=== PATIENT | female | born 1970 | race African-American/Black ===

== ENCOUNTER 2017-03-28 09:23 | Inpatient (IN) ==
--- NOTE | 2017-03-28 09:52 | EKG Report ---
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
[2017-03-28] MEDS ORDERED: ALBUTEROL/IPRATROPIUM 3 ML NEB RESP TX STA (09:56)
[2017-03-28 10:06] LABS: Basophils # 0.1 10*3/uL (0.0-0.2); Basophils % 0.5 % (0.0-0.8); Eosinophils # 0.2 10*3/uL (0.0-0.87); Eosinophils % 1.1 % (0.00-10.9); Hemoglobin 12.4 GM/DL (12.0-16.0); Immature Granulocytes % 0.5 %; Immature Granulocytes Absolute 0.07 #; Lymphocytes # 2.3 10*3/uL (1.4-4.0); Lymphocytes % 16.9 % (21.3-54.2); Mean Corpuscular HGB Conc 30.2 GM/DL (32-36); Mean Corpuscular Hemoglobin 24 PG (27-34); Mean Corpuscular Volume 79.8 FL (87-102); Mean Platelet Volume 9.2 FL (9.6-12.0); Monocytes % 7.1 % (1.7-12.7); NRBC # 0.07 10*3/uL; Neutrophils % 73.9 % (38.7-73.9); Platelet Count 490 T/CUMM (130-400); Red Blood Count 5.14 MC/CUMM (3.8-5.5); Red Cell Distribution Width 19.8 % (9.3-17.3); White Blood Count 13.5 T/CUMM (4-12)
[2017-03-28 10:25] LABS: D-Dimer 0.7 MG/L FEU; PT Patient Result 10.6 SECS; Partial Thromboplastin Time 27.5 SECS (0-40)
--- NOTE | 2017-03-28 10:29 | XRay Report ---
XR chest 2V Indication: SOB Comparison: Chest x-ray dated July 25, 2016 Technique: Frontal and lateral views of the chest. Findings: Moderate cardiomegaly. Patchy bilateral perihilar opacities, right greater than left, suspicious for pulmonary edema or pneumonia. Visualized osseous and surrounding soft tissue structures appear grossly unchanged. IMPRESSION: As above. PROCEDURE INTERPRETED AT [facility] DEPARTMENT OF RADIOLOGY Final Report Signed by: Dr Chong Alberto
[2017-03-28 10:40] LABS: Albumin 3.2 G/DL (3.4-5.0); Calcium 8.9 MG/DL (8.5-10.1); Osmolality,Calculated 279.4 MOS/KG (273-304); Potassium 4.7 MMOL/L (3.5-5.1); Total Protein 7.2 G/DL (6.4-8.3); Troponin I Only 0.018 NG/ML (0.00-0.045)
[2017-03-28] MEDS ORDERED: FUROSEMIDE 40 MG/4 ML VIAL IV STA (10:43)
--- NOTE | 2017-03-28 10:45 | Ultrasound Report ---
US gallbladder Indication: Right upper quadrant/epigastric pain. Comparison: None. Technique: Multiple longitudinal and transverse real-time sonographic images of the right upper quadrant of the abdomen are obtained. Findings: The liver measures 19.4 cm and demonstrates increased echogenicity without focal abnormality on submitted images. The gallbladder is normal in size and demonstrates no wall thickening, abnormal intraluminal echoes, or pericholecystic fluid. The sonographic Cruz's sign is negative. The common duct measures 0.29 cm in diameter and there is no evidence of significant intrahepatic ductal dilation. Right kidney measures 9.6 cm. Pancreas obscured. IVC appeared grossly patent. IMPRESSION: Hepatic steatosis/hepatomegaly. No evidence of cholecystitis. PROCEDURE INTERPRETED AT [facility] DEPARTMENT OF RADIOLOGY Final Report Signed by: Dr Chong Alberto
[2017-03-28] MEDS ORDERED: FUROSEMIDE 40 MG/4 ML VIAL ONE (10:48)
[2017-03-28] MEDS ORDERED: LEVOFLOXACIN INJ 500 MG in PREMIX 1 EACH IV STA (10:48)
--- NOTE | 2017-03-28 11:09 | Emergency Department Note ---
Paxton Soriano Gwan, am scribing for, and in the presence of, Alfonso Metzger MD 10:02. Domenica Soriano Phillip K, MD, personally performed the services described in this documentation, ascribed by Jim Matta in my presence, and it is both accurate and complete . Arrival - Arrival Chief Complaint: Shortness of Breath Stated Complaint: hard to breathe. coughing and weak ED Nursing Triage Note: Pt c/o cough, upper abd pain, upper back pain, SOB, and chills x 1.5 months. Mode of Arrival: Ambulatory Limitations: No Limitations Source: Patient, Old Records Reviewed, RN Notes Reviewed Time Seen by Provider: 03/28/17 09:48 - History of Present Illness HPI Narrative: Patient is a 46 y/o obese black female, with a hx of asthma, HTN and NIDDM, who presents to the ED with a c/o upper abd pain and SOB with an onset 1.5 months ago. Patient stated that her SOB is worsened when she exerts herself and that she gets nauseous after she eats a meal. She continued to note that she has had this happen before in 2002 resulting in her being prescribed an Albuterol pump. She noted that she has informed her PCP Dr. Jackson of her sxs and that she was called in a pump, but when she went to pick it up it was not there. She denies the urge to vomit after meals. Her LNMP was 5/18 and it was NML. No other problems/complaints reported in ED. Onset (ago): month(s) Consistency: constant Severity: moderate Date of Last Menstrual Period: March 07 Allergies/Adverse Reactions: Allergies Allergy/AdvReac Type Severity Reaction Status Date / Time No Known Allergies Allergy Verified 03/28/17 09:38 Home Medications: Home Medications Medication Instructions Recorded Confirmed Type Atorvastatin [Lipitor] 10 mg PO DAILY 03/28/17 03/28/17 History Cholecalciferol (Vitamin D3) 2,000 unit PO DAILY 03/28/17 03/28/17 History [Vitamin D3] Furosemide Tab [Lasix Tab] 10 mg PO DAILY 03/28/17 03/28/17 History Lisinopril/Hydrochlorothiazide 1 each PO DAILY 03/28/17 03/28/17 History [Lisinopril-Hctz 10-12.5 mg Tab] Metformin HCl [Metformin HCl ER] 500 mg PO DAILY 03/28/17 03/28/17 History Omeprazole 40 mg PO DAILY 03/28/17 03/28/17 History buPROPion XL [Wellbutrin Xl] 150 mg PO DAILY 03/28/17 03/28/17 History Review of System - Review of System 12 point system: reviewed and no additional remarkable complaints except as stated - Review of System Constitutional: Absent: chills, fever Eyes: Absent: discharge Head/Ears/Nose/Throat: Absent: earache Respiratory: Present: as per HPI, cough Cardiovascular: Absent: chest pain Gastrointestinal: Present: as per HPI, abdominal pain, nausea. Absent: vomiting , diarrhea Genitourinary female: Absent: dysuria Musculoskeletal: Absent: arm pain, back pain, leg pain, neck pain Skin: Absent: rash Neurological: Absent: headache Psychiatric: Absent: anxiety Medical,Surgical,& Family Hx - Medical History Cardio: History of: [place] Endocrine: History of: Diabetes Mellitus (NIDDM) Respiratory: History of: Asthma - Social History Smoking Status: Never smoker Exam Vital Signs: Vital Signs Temperature 98.5 F 03/28/17 09:37 Pulse Rate 118 H 03/28/17 10:16 Respiratory Rate 18 03/28/17 10:16 Blood Pressure 122/47 03/28/17 10:12 O2 Sat by Pulse Oximetry 100 03/28/17 10:16 - General General appearance: alert, in no apparent distress, obese - Head Head exam: Present: atraumatic, normocephalic - Eye Eye exam: Present: normal appearance, PERRL, EOMI - ENT ENT exam: Present: normal oropharynx, mucous membranes moist, TM's normal bilaterally, normal external ear exam - Neck Neck exam: Present: full ROM, trachea midline. Absent: tenderness - Chest Chest inspection: Present: symmetric chest wall rise. Absent: tenderness - Respiratory Respiratory exam: Present: normal lung sounds bilaterally. Absent: respiratory distress - Cardiovascular Cardiovascular exam: Present: normal rhythm, tachycardia - Abdominal Exam Abdominal exam: Present: soft, tenderness (Mid epigastric tenderness to palpation ), normal bowel sounds - Extremities Exam Extremities exam: Present: full ROM. Absent: tenderness - Back Exam Back exam: Present: full ROM. Absent: tenderness - Neurological Exam Neurological exam: Present: alert, oriented X3, CN II-XII intact. Absent: motor sensory deficit - Psychiatric Psychiatric exam: Present: normal affect, normal mood - Skin Skin exam: Present: warm, dry, intact, normal color Course Course Narrative: Patient discussed with the hospitalist. Results - Labs CBC & BMP: 03/28/17 09:53 03/28/17 09:53 Lab Results: I have reviewed the patients labs Labs: Laboratory Tests 03/28/17 09:53 WBC 13.5 H RBC 5.14 Hgb 12.4 Hct 41.0 MCV 79.8 L MCH 24 L MCHC 30.2 L RDW 19.8 H Plt Count 490 H MPV 9.2 L Lymph % (Auto) 16.9 L Neut # (Auto) 10.0 H [place] # (Auto) 1.0 H Laboratory Tests 03/28/17 03/28/17 09:53 09:53 INR 1.0 PT Patient/Control Mix 10.6 D-Dimer, Quantitative 0.7 Circ Anticoag PTT 27.5 Serum , Qual Negative Laboratory Tests 03/28/17 03/28/17 09:53 09:53 Sodium 140 Potassium 4.7 Chloride 100 Carbon Dioxide 36 H BUN 9 Creatinine 1.00 Glucose 132 H Total Bilirubin 0.90 L Alkaline Phosphatase 131 H B-Natriuretic Peptide 106 H Albumin 3.2 L Globulin 4.0 H Albumin/Globulin Ratio 0.8 L - Diagnostic Findings Procedure: Chest x-ray: report reviewed by me (Moderate cardiomegaly. Patchy bilateral perihilar opacities, right greater than left, suspicious for pulmonary hyun or pneumonia. Visualized osseous and surrounding soft tissue structures appear grossly unchanged. ), Ultrasound: report reviewed by me ( Gallbladder: Hepatic steatosis/hepatomegaly. No evidence of cholecystitis. ) Disposition Clinical Impression: Congestive heart failure, Possible pneumonia, Abdominal pain, Hypertension Case discussed with: patient Disposition: Still a Patient Condition: Guarded Additional Instructions: Admit to the hospitalist.
[2017-03-28] MEDS ORDERED: LEVOFLOXACIN INJ 100 ML IV ONE (11:23)
--- NOTE | 2017-03-28 13:46 | Hospitalist History & Physical ---
Assessment and Plan (1) Dyspnea Status: Acute Assessment and plan: Supplemental O2. Breathing treatments scheduled and prn. Current Visit: Yes (2) Pneumonia Status: Acute Assessment and plan: Pneumonia revealed on CXR. Pt. to be admitted. Pt. will be started on IV antibiotics (Zosyn and Azithromycin). Breathing treatments. Supplemental O2. CBC /BMP ordered. Current Visit: Yes (3) Hypertension Status: Acute Assessment and plan: Restart home meds Current Visit: Yes (4) Diabetes Status: Acute Assessment and plan: Accuchecks achs. SSI. A1c in am. Current Visit: Yes (5) Abdominal pain Status: Acute Current Visit: Yes History of Present Illness Chief complaint: shortness of breath History of present illness: Ms. Mendoza is a 46 year old morbidly obese black female with a history of asthma, hypertension, and diabetes presents to the ED today with complaints of shortness of breath that started about a month and half ago. Patient states that she was recently evaluated at [facility] on 03/26 but was discharged from the ED. Patient states that the shortness of breath is worse when she exerts herself. Patient also reports experiencing abdominal pain after she eats a meal. Patient denies any supplemental O2 use at home. Patient reports that her PCP Dr. Olsen is aware of her symptoms and that she was prescribed inhaler for use but that she did not pick it up. Checks x-ray in the ED today revealed 'patchy bilateral perihilar opacities, right greater than left'. WBC noted to be 13.5. Patient will be admitted to the hospitalist service for further evaluation and treatment. Home Medications Medication Instructions Recorded Confirmed Type Atorvastatin [Lipitor] 10 mg PO DAILY 03/28/17 03/28/17 History Cholecalciferol (Vitamin D3) 2,000 unit PO DAILY 03/28/17 03/28/17 History [Vitamin D3] Furosemide Tab [Lasix Tab] 10 mg PO DAILY 03/28/17 03/28/17 History Lisinopril/Hydrochlorothiazide 1 each PO DAILY 03/28/17 03/28/17 History [Lisinopril-Hctz 10-12.5 mg Tab] Metformin HCl [Metformin HCl ER] 500 mg PO DAILY 03/28/17 03/28/17 History Omeprazole 40 mg PO DAILY 03/28/17 03/28/17 History buPROPion XL [Wellbutrin Xl] 150 mg PO DAILY 03/28/17 03/28/17 History Allergies Allergy/AdvReac Type Severity Reaction Status Date / Time No Known Allergies Allergy Verified 03/28/17 09:38 Medical,Surgical,& Family Hx - Medical History Cardio: History of: [place] Endocrine: History of: Diabetes Mellitus (NIDDM) Respiratory: History of: Asthma - Social History Smoking Status: Never smoker - Constitutional Constitutional: Present: chills, fever(s), weakness - Cardiovascular Cardiovascular: Present: dyspnea on exertion, edema. Absent: chest pain at rest - Psychiatric Psychiatric: Absent: confusion - Endocrine Endocrine: Present: heat intolerance Exam - Constitutional Vitals: Period Temp Pulse Resp BP Sys/Zuñiga Pulse Ox Last 24 Hr 98.5 F 111-129 18-45 109-228/47-139 69-100 General appearance: normal weight, no acute distress, morbidly obese - Head Head exam: Present: normal inspection, normocephalic - Eye Eye exam: Present: EOMI. Absent: periorbital swelling Pupils: Present: JOSE. Absent: dilated - Neck Neck exam: Present: normal inspection - Respiratory Respiratory exam: Present: other (coarse, decreased at bases) - Cardiovascular Cardiovascular exam: Present: tachycardia. Absent: systolic murmur - GI/Abdominal GI/Abdominal exam: Present: normal bowel sounds, soft - Extremities Exam Extremities exam: Present: normal capillary refill, full ROM, edema - Neurological Exam Neurological exam: Present: alert, oriented X3 - Psychiatric Psychiatric exam: Present: normal affect, normal mood - Skin Skin exam: Present: normal color, warm, dry Results - Labs CBC & BMP: 03/28/17 09:53 03/28/17 09:53 Lab Results: I have reviewed the past 24 hour labs
[2017-03-28] MEDS ORDERED: GLUCAGON 1 MG VIAL IM PRN ×2 (13:50→15:54)
[2017-03-28] MEDS ORDERED: DEXTROSE 50% 25 GM/50 ML VIAL IV PRN (13:50)
[2017-03-28] MEDS ORDERED: DOCUSATE SODIUM 100 MG CAPSULE PO PRN (14:10)
[2017-03-28] MEDS ORDERED: ALBUTEROL 2.5 MG/3 ML NEB RESP TX PRN (14:10)
[2017-03-28] MEDS ORDERED: FUROSEMIDE 40 MG/4 ML VIAL IV ONE (14:27)
[2017-03-28] MEDS ORDERED: ALBUTEROL/IPRATROPIUM 3 ML NEB RESP TX SCH (15:00)
[2017-03-28] MEDS: cefTRIAXone 1,000 MG in SODIUM CHLORIDE 0.9% 100 ML IV SCH (15:10)
[2017-03-28] MEDS: INSULIN LISPRO 100 UNIT/ML SUBCUT SCH ×2 (16:30→22:19)
[2017-03-28] MEDS ORDERED: ACETAMINOPHEN 325 MG TABLET PO PRN (17:12)
[2017-03-28] MEDS: CARVEDILOL 6.25 MG TABLET PO SCH ×2 (18:15→22:19)
[2017-03-28] MEDS: ACETAMINOPHEN 325 MG TABLET PO PRN (18:15)
[2017-03-28] MEDS: AZITHROMYCIN INJ 500 MG in SODIUM CHLORIDE 0.9% 250 ML IV SCH (18:26)
--- NOTE | 2017-03-28 20:12 | Pulmonology Consult Note ---
History of Present Illness Chief complaint: Asthma. GE RD. Solid dysphasia. History of present illness: Ms. Mendoza is a 46 year old obese black female whom I been asked see in pulmonary consultation for evaluation and treatment. This patient came to the hospital because she was short of breath and because she had some lower substernal chest pain. The chest pain is reproduced with pressure over her lower sternum. She also complains of wheezing shortness of breath and dyspnea on exertion. She says that when she took her lisinopril she felt like her lips and tongue were trying to swell. There may have been peanuts involved but she is suspicious of the lisinopril. She thinks that since she started this medicine her breathing is worse. The patient complains of solid dysphasia over the distal esophagus. She says foods like meat hanging up there and she has to wait for him to go down. She has significant gastroesophageal reflux and this often refluxes up into her throat at night and causes her to call for him to be short of breath. The patient complains of chronic recurrent bilateral lower extremity edema The remainder the review of systems is negative. Allergies. None known. Possibly lisinopril. Home medicines. Lipitor. Vitamin D3. Lasix. Lisinopril. Hydrochlorothiazide. Metformin. Prilosec. Wellbutrin XL 150 mg. Past history. Patient has had asthma since she was a child. She has non- insulin-dependent diabetes mellitus and there is a history of a myocardial infarction but I am not sure what this is. Patient denies any known history of sarcoidosis. High blood pressure. Hyperlipidemia. Social history. Never smoked. Followed by Dr. Dailey Family history. Positive for diabetes. Chest x-ray. 03/28/2017. My interpretation. Mild cardiomegaly. Bilateral hilar adenopathy which is also on a prior film done in July 2016. There is scattered perihilar calcifications bilaterally and there is some mild to moderate interstitial scarring in the medial and posterior basal segments of the right lower lung. Lab. White count is 13,500 with 74 segs 17 lymphs. H&H 12.4 41.0 with decreased indices and elevated red blood cell distribution with. Platelets of 490,000 with a decreased MPV. Electrolytes are normal. Creatinine is 1.0. BUN is 9. Glucoses are mildly elevated. Liver function tests show mild elevation of alkaline [place]. Cardiac enzymes are negative. Natruretic peptide is 102. Total protein is 7.2. Albumin is low at 3.2. Globulins are slightly up at 4.0. Serum test is negative. D-dimer is 0.7. O2 sats on room air is 79%. On FiO2 28% O2 sats are 98%. Physical exam. Vital signs. See below. Afebrile. Psychiatric. Oriented 3 Neurologic. Cranial nerves are intact. Long track motor functions intact. Sensory exam was not done. Gait was not tested. Face is symmetrical. Eyes are normal. Nares normal lips are normal tongue does not appear to be swollen. Neck. Short thick. Symmetrical. No meningismus. Lymphatics. No submandibular cervical supraclavicular or epitrochlear adenopathy. Chest. Laryngeal tracheal and large airway wheeze. Patient is tender over the inferior sternum. Pressure here reproduces her pain. Heart. I hear no gallop Breast deferred Abdomen obese. No organs can be palpated. Bowel sounds are present. and rectal. Deferred Lower extremities +1/4 bilateral pedal and pretibial edema with slight tenderness of the calves. Skin of the face and hand showed no cancerous or infectious lesions. No other areas were examined The remainder the physical exam is negative. Impression. 1. Lifelong history of asthma. Probably exacerbated by gastroesophageal reflux and microaspiration. 2. Solid dysphasia suspect esophageal stricture 3. Gastroesophageal reflux disease with a history strongly suggestive of nocturnal microaspiration 4. Bilateral hilar adenopathy. Possible sarcoidosis. 5. Right lower lung medial basal and basilar segment interstitial scars. Watch for infiltrate. Likely scarring from gastric aspiration 6. Hypoxemia. Etiology undetermined. 7. Chronic bilateral lower extremity edema. Look for DVT 8. High blood pressure 9. Axl-lfldudq-zsbowbcrn diabetes mellitus 10. Hyper-lipidemia 11. Morbid obesity 12. See past history Plan. 1. Discontinue lisinopril. Watch blood pressure 2. Antireflux regimen. Discussed with the patient and her female family member 3. GI consultation for possible E scope with dilatation 4. Angiotensin-converting enzyme 5. Follow-up chest x-ray in the a.m. with attention to right lower lung 6. Sputum for Gram stain culture and sensitivity #7 room air blood gas in the morning 8. Doppler venograms of lower extremity 9. Cold agglutinins 10. Proton pump 11. Thyroid function 12. See orders Home Medications Medication Instructions Recorded Confirmed Type Atorvastatin [Lipitor] 10 mg PO DAILY 03/28/17 03/28/17 History Cholecalciferol (Vitamin D3) 2,000 unit PO DAILY 03/28/17 03/28/17 History [Vitamin D3] Furosemide Tab [Lasix Tab] 10 mg PO DAILY 03/28/17 03/28/17 History Lisinopril/Hydrochlorothiazide 1 each PO DAILY 03/28/17 03/28/17 History [Lisinopril-Hctz 10-12.5 mg Tab] Metformin HCl [Metformin HCl ER] 500 mg PO DAILY 03/28/17 03/28/17 History Omeprazole 40 mg PO DAILY 03/28/17 03/28/17 History buPROPion XL [Wellbutrin Xl] 150 mg PO DAILY 03/28/17 03/28/17 History Allergies Allergy/AdvReac Type Severity Reaction Status Date / Time No Known Allergies Allergy Verified 03/28/17 09:38 Exam (Pulmonay) H&P - Constitutional Vitals: Period Temp Pulse Resp BP Sys/Zuñiga Pulse Ox Last 24 Hr 98.4 F-98.5 F 104-129 18-45 109-228/47-139 69-100 Medical,Surgical,& Family Hx - Medical History Cardio: History of: Hypertension, [place] No history of: CAD Psychological: History of: Depression HEENT: History of: Eye Problem (wears glasses) Endocrine: History of: Diabetes Mellitus (NIDDM), Dyslipidemia Respiratory: History of: Asthma, COPD, Obstructive Sleep Apnea Gastrointestinal: History of: GERD - Surgical History Abdominal Surgeries: Patient denies: Colonoscopy, EGD Reproductive Surgeries: Surgical HX of;: Section - Social History Smoking Status: Never smoker Frequency of Alcohol Use: None Type of Drug Use: None Results - Labs CBC & BMP: 03/28/17 09:53 03/28/17 09:53
[2017-03-28] MEDS: LEVALBUTEROL 1.25 MG/3 ML NEB RESP TX SCH (20:27)
--- NOTE | 2017-03-28 21:29 | Ultrasound Report ---
Bilateral lower extremity venous Doppler with poole scale, Spectral Doppler and color-flow analysis performed and interpreted. Indication: Leg pain and swelling. Shortness of breath. Scanning over both common femoral veins, superficial femoral veins, greater saphenous veins and popliteal veins demonstrates normal compressibility, color flow, and augmentation. Impression: No evidence of DVT seen in either lower extremity. PROCEDURE INTERPRETED AT [facility] DEPARTMENT OF RADIOLOGY Final Report Signed by: Dr. Ting Saba
[2017-03-28 21:44] LABS: Free T4 (Free Thyroxine) 0.97 NG/DL (0.76-1.46); Thyroid Stimulating Hormone 1.03 uIU/ml (0.358-3.74)
[2017-03-28] MEDS: MONTELUKAST 10 MG TABLET PO SCH (22:18)
[2017-03-29] MEDS: LEVALBUTEROL 1.25 MG/3 ML NEB RESP TX SCH ×4 (00:10→19:52)
[2017-03-29 03:35] LABS: ABG Base Excess 6.8 MMOL/L (-2.5-2.5); ABG HCO3 30.2 MMOL/L (20-26); ABG Oxygen Saturation 76.7 % (95-100); ABG PCO2 55.4 MM HG (35-48); ABG PH 7.388 (7.35-7.45); ABG TCO2 30.3 MMOL/L (23-27); Pt O2 Delivery Device Room Air
[2017-03-29 03:51] LABS: ABG PO2 37.5 MM HG (80-95)
[2017-03-29 04:39] LABS: Calcium 8.7 MG/DL (8.5-10.1); Magnesium 2.1 MG/DL (1.8-2.4); Osmolality,Calculated 280.3 MOS/KG (273-304)
[2017-03-29 04:55] LABS: Calcium 8.6 MG/DL (8.5-10.1); Free T4 (Free Thyroxine) 1.1 NG/DL (0.76-1.46); Magnesium 2.1 MG/DL (1.8-2.4); Osmolality,Calculated 282.1 MOS/KG (273-304); Potassium 4.1 MMOL/L (3.5-5.1); Risk Ratio 3.06; Thyroid Stimulating Hormone 0.74 uIU/ml (0.358-3.74)
[2017-03-29 04:57] LABS: Basophils % 0.4 % (0.0-0.8); Eosinophils # 0.2 10*3/uL (0.0-0.87); Eosinophils % 1.8 % (0.00-10.9); Hematocrit 39.3 VOL% (35.7-47.0); Hemoglobin 11.6 GM/DL (12.0-16.0); Immature Granulocytes % 0.5 %; Immature Granulocytes Absolute 0.04 #; Lymphocytes # 1.7 10*3/uL (1.4-4.0); Lymphocytes % 21.1 % (21.3-54.2); Mean Corpuscular HGB Conc 29.5 GM/DL (32-36); Mean Corpuscular Hemoglobin 24 PG (27-34); Mean Corpuscular Volume 80.7 FL (87-102); Mean Platelet Volume 9.5 FL (9.6-12.0); Monocytes % 12.2 % (1.7-12.7); NRBC # 0.05 10*3/uL; Neutrophils # 5.3 10*3/uL (1.4-7.4); Platelet Count 437 T/CUMM (130-400); Red Blood Count 4.87 MC/CUMM (3.8-5.5); Red Cell Distribution Width 19.8 % (9.3-17.3); White Blood Count 8.2 T/CUMM (4-12)
[2017-03-29] MEDS: INSULIN LISPRO 100 UNIT/ML SUBCUT SCH ×4 (08:11→20:51)
[2017-03-29] MEDS: MONTELUKAST 10 MG TABLET PO SCH (08:12)
[2017-03-29] MEDS: FUROSEMIDE 20 MG TABLET PO SCH (08:12)
[2017-03-29] MEDS: CARVEDILOL 6.25 MG TABLET PO SCH ×2 (08:12→20:51)
[2017-03-29] MEDS: buPROPion XL 150 MG TABLET PO SCH (08:12)
[2017-03-29] MEDS: ACETAMINOPHEN 325 MG TABLET PO PRN (08:12)
[2017-03-29] MEDS: ATORVASTATIN 10 MG TABLET PO SCH (08:12)
[2017-03-29] MEDS: PANTOPRAZOLE 40 MG TABLET PO SCH (08:12)
[2017-03-29] MEDS ORDERED: LISINOPRIL/HCTZ 10-12.5 MG TABLET PO SCH (09:00)
--- NOTE | 2017-03-29 09:09 | XRay Report ---
XR chest 2V Indication: Possible sarcoid, right lower lung scar Comparison: Chest x-ray dated April 27, 2017 Technique: Frontal and lateral views of the chest. Findings: Continued cardiomegaly. There is question of bilateral hilar adenopathy. There is nonspecific prominence of interstitial lung markings which can be seen with infectious/pulmonary process such as sarcoid or interstitial pulmonary edema. Consider CT chest for further evaluation of above findings. Visualized osseous and surrounding soft tissue structures appear grossly unchanged. IMPRESSION: As above. PROCEDURE INTERPRETED AT [facility] DEPARTMENT OF RADIOLOGY Final Report Signed by: Dr Chong Alberto
--- NOTE | 2017-03-29 10:08 | Gastrointestinal Consult Note ---
Assessment and Plan (1) Abdominal pain Status: Acute Assessment and plan: 03/29-6 week history of upper abdominal pain with precipitating factors including exertion and ingestion of a meal. No history of gallbladder disease in patient or family. History of reflux and dysphagia to solids. Ultrasound negative other than hepatic steatosis. Plan an addendum to followed by Dr. Thompson. Current Visit: Yes History of Present Illness Chief complaint: Abdominal pain History of present illness: Ms. Mendoza is a 46 year old female who was admitted to the hospital with onset of increased shortness of breath and abdominal pain. Patient states that approximately 6 weeks ago she had a gradual onset of pain in her upper abdomen/ epigastric region. She states that the pain would come alone all of a sudden and would only be relieved by resting. She states that the pain at times seem to be precipitated by eating a meal and at other times from exertion. She denies that the pain could be elicited with touching this area however states that if she would press in the area when the pain started it would help alleviate this. She also has a recent onset cough however she states the pain began prior to the cough. She does report some dysphagia with some solids such as meats and at times has to regurgitate these. She denies any dysphagia to solids or pills. She denies any recent weight loss. She states she has had an increase in belching and bloating lately. She also has reflux and this is controlled with her Prilosec most of the time however does report some nocturnal symptoms including cough.. She states she has no history of peptic ulcer disease in the past. She denies any NSAID use. She denies any melena or hematochezia. She does have some episodes of nausea but denies any vomiting. She denies a family history of gallbladder disease. She states she has never had endoscopy in the past. On admission abdominal ultrasound showed hepatic steatosis with no gallbladder findings. She does have a history of asthma, hypertension and diabetes. She is followed by Dr. Dailey for these things. Chest x-ray is noted to show cardiomegaly, questionable bilateral hilar adenopathy. Home Medications Medication Instructions Recorded Confirmed Type Atorvastatin [Lipitor] 10 mg PO DAILY 03/28/17 03/28/17 History Cholecalciferol (Vitamin D3) 2,000 unit PO DAILY 03/28/17 03/28/17 History [Vitamin D3] Furosemide Tab [Lasix Tab] 10 mg PO DAILY 03/28/17 03/28/17 History Lisinopril/Hydrochlorothiazide 1 each PO DAILY 03/28/17 03/28/17 History [Lisinopril-Hctz 10-12.5 mg Tab] Metformin HCl [Metformin HCl ER] 500 mg PO DAILY 03/28/17 03/28/17 History Omeprazole 40 mg PO DAILY 03/28/17 03/28/17 History buPROPion XL [Wellbutrin Xl] 150 mg PO DAILY 03/28/17 03/28/17 History Allergies Allergy/AdvReac Type Severity Reaction Status Date / Time No Known Allergies Allergy Verified 03/28/17 09:38 Medical,Surgical,& Family Hx - Medical History Cardio: History of: Hypertension, [place] No history of: CAD Psychological: History of: Depression HEENT: History of: Eye Problem (wears glasses) Endocrine: History of: Diabetes Mellitus (NIDDM), Dyslipidemia Respiratory: History of: Asthma, COPD, Obstructive Sleep Apnea Gastrointestinal: History of: GERD - Surgical History Abdominal Surgeries: Patient denies: Colonoscopy, EGD Reproductive Surgeries: Surgical HX of;: Section - Social History Smoking Status: Never smoker Frequency of Alcohol Use: None Type of Drug Use: None 12 point system: reviewed and no additional remarkable complaints except as stated - Constitutional Constitutional: Present: as per HPI - EENT Eyes: Present: as per HPI Ears: Present: as per HPI Nose, mouth and throat: Present: as per HPI, dysphagia - Cardiovascular Cardiovascular: Present: as per HPI, dyspnea - Respiratory Respiratory: Present: as per HPI, cough, dyspnea - Gastrointestinal Gastrointestinal: Present: as per HPI, abdominal pain, dysphagia, heartburn, nausea - Genitourinary Genitourinary: Present: as per HPI - Musculoskeletal Musculoskeletal: Present: as per HPI - Neurological Neurological: Present: as per HPI - Psychiatric Psychiatric: Present: as per HPI - Endocrine Endocrine: Present: as per HPI - Hematologic/Lymphatic Hematologic/Lymphatic: Present: as per HPI Exam - Constitutional Vitals: Period Temp Pulse Resp BP Sys/Zuñiga Pulse Ox Last 24 Hr 96.6 F-98.6 F 101-124 16-45 91-152/47-121 73-100 General appearance: no acute distress, morbidly obese - Head Head exam: Present: normal inspection, normocephalic - Eye Eye exam: Present: other (Lids and conjunctive are unremarkable). Absent: scleral icterus - ENT ENT exam: Present: normal exam, normal oropharynx - Neck Neck exam: Present: normal inspection - Respiratory Respiratory exam: Present: clear to auscultation bilaterally. Absent: rales, rhonchi, wheezes - Cardiovascular Cardiovascular exam: Present: regular rate and rhythm. Absent: diastolic murmur , JVD, systolic murmur - GI/Abdominal GI/Abdominal exam: Present: normal bowel sounds, soft. Absent: ascites, distended, mass, organomegaly, tenderness - Extremities Exam Extremities exam: Present: normal inspection, full ROM - Back Exam Back exam: Present: normal inspection - Neurological Exam Neurological exam: Present: alert, oriented X3 - Psychiatric Psychiatric exam: Present: normal affect, normal mood - Skin Skin exam: Present: normal color, warm, dry Results - Labs CBC & BMP: 03/29/17 03:43 03/29/17 03:43 Lab Results: I have reviewed the past 24 hour labs
--- NOTE | 2017-03-29 10:15 | Physician Query Form ---
CLICK EDIT DOCUMENT TO SELECT QUERY ANSWER --> OK --> SIGN Lucero Flores RN Clinical V Belt Inspector W) [phone] (f) [phone] [email or web address]: Make your selection(s) from the choices in EACH section by typing an "x" and enter comments in the comment section. Please use your independent medical judgment in providing your response. This request does not imply that any particular answer is desired or expected. CLINICAL INDICATORS: (Providers should not edit this section) Based on documentation of "presents with shortness of breath. She was noted to be hypoxic in the ER". PO2=37.5. ABG O2 sat=76.7. Pt. treated with O2 at 3L NC. If possible, please further clarify the type and acuity of respiratory diagnosis : ACUITY: ( ) Acute ( ) Chronic (X ) Acute on Chronic TYPE: ( ) Respiratory failure with hypoxia ( ) Respiratory failure with hypercapnia (X ) Respiratory Insufficiency ( ) ARDS (Adult/Acute Respiratory Distress Syndrome) ( ) Other, please specify: ( ) Clinically unable to determine Recognized criteria for respiratory failure PH <7.35 or >7.45 PO2 <60 PCO2 >50 RR >24 O2 Sat <90% on RA or <95% on O2 Use of accessory muscles Unable to speak in full sentences Intubation is not required COMMENTS: PLEASE ALSO DOCUMENT RESPONSE IN PROGRESS NOTES AND/OR DISCHARGE SUMMARY Use of terms such as suspected, likely, or probable (associated with a specific diagnosis that is being evaluated, monitored, or treated as if it exists) are acceptable and can be restated in the discharge summary if not ruled out. MTDD
--- NOTE | 2017-03-29 10:20 | Physician Query Form ---
CLICK EDIT DOCUMENT TO SELECT QUERY ANSWER --> OK --> SIGN Lucero Flores RN Clinical Leather Colorer W) [phone] (f) [phone] [email or web address] PROVIDERS: Make your selection(s) from the choices in EACH section by typing an "x" and enter comments in the comment section. Please use your independent medical judgment in providing your response. This request does not imply that any particular answer is desired or expected. CLINICAL INDICATORS: (Providers should not edit this section) Pt. admitted with pneumonia. Based on documentation of "dysphagia, gastric aspiration, and microaspiration". Pt. treated with IV Azithromycin and Rocephin , Community Acquired and Healthcare Acquired are both unspecified terms and require further specificity. Based on the above, could you please clarify further specificity regarding the type of pneumonia you are treating (even if specific organism may not be known) ? ( ) Aspiration pneumonia ( ) Gram negative pneumonia ( ) Gram positive pneumonia (x) Bacterial pneumonia due to, please specify organism (if known): Organism unknown ( ) Viral pneumonia ( ) Pneumonia due to, please specify: ( ) Clinically unable to determine ( ) Other, please specify: COMMENTS: PLEASE ALSO DOCUMENT RESPONSE IN PROGRESS NOTES AND/OR DISCHARGE SUMMARY Use of terms such as suspected, likely, or probable (associated with a specific diagnosis that is being evaluated, monitored, or treated as if it exists) are acceptable and can be restated in the discharge summary if not ruled out. MTDD
--- NOTE | 2017-03-29 11:04 | Pulmonology Progress Note ---
Pulmonary - PN: Subj Interval history: This is a 46-year-old black female whom I saw in pulmonary consultation on 2016. My impressions were. 1. Lifelong history of asthma. Probably exacerbated by gastroesophageal reflux and microaspiration. 2. Solid dysphasia suspect esophageal stricture 3. Gastroesophageal reflux disease with a history strongly suggestive of nocturnal microaspiration 4. Bilateral hilar adenopathy. Possible sarcoidosis. 5. Right lower lung medial basal and basilar segment interstitial scars. Watch for infiltrate. Likely scarring from gastric aspiration 6. Hypoxemia. Etiology undetermined. 7. Chronic bilateral lower extremity edema. Look for DVT 8. High blood pressure 9. Gii-eawgvzj-duoepmfgp diabetes mellitus 10. Hyper-lipidemia 11. Morbid obesity 12. See past history 03/29/2017. Today the patient's breathing is a little better. She has asthma. She has some mainly tracheal and large airway wheezing. She is in aspirator. She also has solid dysphasia and probable esophageal stricture. She is getting a GI evaluation today. Patient has bilateral hilar adenopathy. She is not aware of any history of sarcoidosis. Angiotensin-converting enzyme has been ordered but is pending. I have stopped the patient's lisinopril. She has non- insulin-dependent diabetes mellitus, hyperlipidemia and high blood pressure. There is also a history of obstructive sleep apnea. We should continue her inhalation therapy. She has been started on Singulair. She is also on antibiotics. Today's x-ray shows either scarring or infiltrate in the medial basilar and posterior basal segments of the right lower lung. Cultures are pending. Doppler venograms of the lower extremities Physical exam. Vital signs. See below. Psychiatric. Oriented 3 Neurologic. Cranial nerves are intact. Long track motor functions intact. Face. Symmetrical. Lips and tongue are probably normal. Neck. Symmetrical. No meningismus. Lymphatics. No submandibular cervical supraclavicular or epitrochlear adenopathy. Chest. Tracheal and large airway wheeze with prolonged expiration no chest wall tenderness except over the lower sternal area Heart. No gallop Abdomen. Massively obese. Positive bowel sounds Lower extremities. Trace of edema bilaterally. The remainder of the physical exam is negative Plan. 1. Discontinue lisinopril. Watch blood pressure 2. Antireflux regimen. Discussed with the patient and her female family member 3. GI consultation for possible E scope with dilatation 4. Angiotensin-converting enzyme 5. Follow-up chest x-ray in the a.m. with attention to right lower lung 6. Sputum for Gram stain culture and sensitivity #7 room air blood gas in the morning 8. Doppler venograms of lower extremity 9. Cold agglutinins 10. Proton pump 11. Thyroid function 12. See orders Exam (Progress Note) - Constitutional Vitals: Period Temp Pulse Resp BP Sys/Zuñiga Pulse Ox Last 24 Hr 96.6 F-98.6 F 101-124 16-45 91-152/55-121 73-99 Results - Labs CBC & BMP: 03/29/17 03:43 03/29/17 03:43
[2017-03-29 11:32] LABS: Bilirubin,Total 0.9 MG/DL (0.2-1.0)
--- NOTE | 2017-03-29 12:28 | Hospitalist Progress Note ---
Assessment and Plan - Time spent with patient Time spent with patient: Greater than 30 minutes (1) Dyspnea Status: Acute Assessment and plan: Multifactorial. Associated with hypoxemia. Improving however radiologist recommends a CT to assess hilar prominence. Pulmonary is involved and has ordered angiotensin-converting enzyme serum values to assess for sarcoidosis. Apparently the patient has a history of asthma. Continue breathing treatments, Singulair. Current Visit: Yes (2) Tachycardia Status: Acute Assessment and plan: She was transferred to telemetry and placed in adult drip yesterday and the nurse informed me she went into a flutter with RVR and 150 bpm. Review of the records cannot seem to find any evidence of a flutter or A. fib. Cardiology has been consulted and an echocardiogram performed. Current Visit: Yes (3) Pneumonia Status: Acute Assessment and plan: Continue antibiotics no fever. Current Visit: Yes (4) Dysphagia Status: Acute Assessment and plan: GI consulted. Current Visit: Yes (5) Hypertension Status: Acute Assessment and plan: Continue medications. Current Visit: Yes (6) Diabetes Status: Acute Assessment and plan: Continue current management. Current Visit: Yes Hospitalist: Subjective Interval history: No complaints this morning, she states she feels better. Exam - Constitutional Vitals: Period Temp Pulse Resp BP Sys/Zuñiga Pulse Ox Last 24 Hr 96.6 F-98.6 F 96-124 16-45 91-152/55-121 73-99 General appearance: no acute distress, morbidly obese - Head Head exam: Present: normocephalic, atraumatic - Eye Eye exam: Present: EOMI Pupils: Present: JOSE - ENT ENT exam: Present: normal exam - Neck Neck exam: Present: normal inspection - Respiratory Respiratory exam: Present: clear to auscultation bilaterally. Absent: rhonchi, wheezes - Cardiovascular Cardiovascular exam: Present: regular rate and rhythm. Absent: gallop, rubs, systolic murmur - GI/Abdominal GI/Abdominal exam: Present: normal bowel sounds, soft. Absent: distended, firm , guarding, tenderness, rebound - Extremities Exam Extremities exam: Present: normal inspection. Absent: calf tenderness, edema Results - Labs CBC & BMP: 03/29/17 03:43 03/29/17 03:43 Lab Results: I have reviewed the past 24 hour labs
[2017-03-29] MEDS: AZITHROMYCIN INJ 500 MG in SODIUM CHLORIDE 0.9% 250 ML IV SCH (14:24)
--- NOTE | 2017-03-29 14:54 | Cardiology Consult Note ---
Assessment and Plan - Time spent with patient Time spent with patient: Greater than 30 minutes (1) Sinus tachycardia Status: Resolved Assessment and plan: SEE PLAN OF CARE LISTED BELOW. Current Visit: Yes (2) Pulmonary hypertension Status: Chronic Assessment and plan: SEE PLAN OF CARE LISTED BELOW. Current Visit: Yes (3) Dyspnea on exertion Status: Acute Assessment and plan: SEE PLAN OF CARE LISTED BELOW. Current Visit: Yes (4) Abdominal pain Status: Acute Assessment and plan: SEE PLAN OF CARE LISTED BELOW. Current Visit: Yes (5) Diabetes Status: Chronic Assessment and plan: SEE PLAN OF CARE LISTED BELOW. Current Visit: Yes Qualifiers: Diabetes mellitus type: type 2 (6) Pneumonia Status: Acute Assessment and plan: SEE PLAN OF CARE LISTED BELOW. Current Visit: Yes (7) Asthma Status: Chronic Assessment and plan: SEE PLAN OF CARE LISTED BELOW. Current Visit: Yes (8) Sleep apnea Status: Chronic Assessment and plan: SEE PLAN OF CARE LISTED BELOW. Current Visit: Yes (9) GERD (gastroesophageal reflux disease) Status: Chronic Assessment and plan: SEE PLAN OF CARE LISTED BELOW. Current Visit: Yes (10) Obesity Status: Chronic Assessment and plan: SEE PLAN OF CARE LISTED BELOW. Current Visit: Yes History of Present Illness - Data of Consult Patient: known to practice within the last 3 years Consult date: 03/29/17 Requesting Physician: Amalia Lugo Primary care physician: Shani Jackson - Consult Narrative Reason for consult: Sinus tachycardia History of present illness: Academic Affairs Specialist: Dr. Bullock PCP: Dr. Jackson Ms. Mendoza is a 46 year old female without known history of coronary artery disease, followed by Dr. Bullock in the remote past. Patient presented to emergency department with complaints of shortness of breath and dyspnea on exertion 1 month. Patient has cardiac risk factors significant for diabetes, hypertension, dyslipidemia, obesity, sedentary lifestyle and former smoker. She has a past medical history of GERD, sleep apnea (wears CPAP nightly) and asthma. Patient saw Dr. Bullock September 2016 for surgical clearance for gastric sleeve surgery. However, she did not undergo the surgery. At that time , she underwent echocardiogram which revealed ejection fraction of 55%. Diastolic function was not determined. Mild TR. CPAP was mildly elevated at 58. Patient was in her usual state of health until approximately 1 month ago when she began experiencing dyspnea on exertion. Patient presented to the emergency department March 28 for further evaluation. She also has complaints of abdominal pain after meals, GI is evaluating. Gallbladder ultrasound was performed which revealed hepatic steatosis and hepatomegaly. No evidence of cholecystitis. Chest x-ray was suggestive for pneumonia, treating with IV antibiotics. X-ray also revealed bilateral hilar adenopathy. Angiotensin-converting enzyme is currently pending in order to assess for sarcoidosis. Dr. Dolan is following. Last night, cardiology was consulted for what was felt to be atrial flutter with rapid ventricular response. However, after reviewing patient's electronic medical record there is no evidence of atrial fibrillation or flutter noted. It appears that patient was in sinus tachycardia with heart rates ranging from 100-120. Patient has been seen on the telemetry unit. Currently patient is in a normal sinus rhythm with heart rates in the 90s. She reports that she did experience mild palpitations last night. However, this is now resolved. She reports that she has never experienced any heart racing/palpitations previous to this hospital admission. She denies chest pain, heaviness and tightness. She also denies any past history of cardiac dysrhythmia. She still has complaints of dyspnea on exertion. This is currently being worked up. Angiotensin converting enzyme is pending in order to assess patient for possible sarcoidosis. Echocardiogram is also pending. At this point, we will continue current plan of care with beta-nette and monitor patient closely on telemetry. We will make further adjustments as needed throughout her hospital stay. ASSESSMENT/PLAN : 1. SINUS TACHYCARDIA - Resolved. It appears that patient was in sinus tachycardia upon admission to [facility]. Heart rates were as high as 125. This has now resolved and at this point, we will monitor this on telemetry. Continue beta-nette and we will further adjust medications as needed throughout her hospital stay. 2. DYSPNEA ON EXERTION - This is most likely multifactorial. It is associated with hypoxemia, etiology unknown. Patient did have bilateral hilar adenopathy per chest x-ray. Radiologist recommends CT in order to further assess hilar adenopathy. Will defer this to Dr. Dolan as he is following. Dr. Dolan is working patient up for possible sarcoidosis. Angiotensin-converting enzyme is pending. Patient also has long-standing history of asthma. At this point, recommend continuing current plan of care with breathing treatments and Singulair. Defer further management to Dr. Dolan. Patient had echocardiogram September 2016 at the [facility] clinic which revealed ejection fraction of 55%, unable to determine diastolic function. Hospital medicine has reordered echocardiogram , results pending. 3. PNEUMONIA - Management per Dr. Dolan. Continue antibiotics. 4. ABDOMINAL PAIN - GI is working this up. Gallbladder ultrasound revealed hepatic steatosis and hepatomegaly. No evidence of cholecystitis. Defer to GI. 5. DIABETES - Defer management to attending. 6. ASTHMA - Management per Dr. Damico. 7. SLEEP APNEA - CPAP nightly. 8. GERD - Continue current plan of care with PPI. 10. BILATERAL HILAR ADENOPATHY - Possible sarcoidosis. Angiotensin-converting enzyme pending. 11. OBESITY - Encouraged weight loss. 12. PULMONARY HYPERTENSION - Echocardiogram September 2016 revealed a pulmonary artery pressure of 58. Repeat echocardiogram has been ordered in order to reevaluate this. At this point, we will continue current plan of care. Further plan and addendum to follow per Dr. Vogt. CC: Amalia Lugo MD - Home Medications and Allergies Home Medications: Home Medications Medication Instructions Recorded Confirmed Type Atorvastatin [Lipitor] 10 mg PO DAILY 03/28/17 03/28/17 History Cholecalciferol (Vitamin D3) 2,000 unit PO DAILY 03/28/17 03/28/17 History [Vitamin D3] Furosemide Tab [Lasix Tab] 10 mg PO DAILY 03/28/17 03/28/17 History Lisinopril/Hydrochlorothiazide 1 each PO DAILY 03/28/17 03/28/17 History [Lisinopril-Hctz 10-12.5 mg Tab] Metformin HCl [Metformin HCl ER] 500 mg PO DAILY 03/28/17 03/28/17 History Omeprazole 40 mg PO DAILY 03/28/17 03/28/17 History buPROPion XL [Wellbutrin Xl] 150 mg PO DAILY 03/28/17 03/28/17 History Allergies/Adverse Reactions: Allergies Allergy/AdvReac Type Severity Reaction Status Date / Time No Known Allergies Allergy Verified 03/28/17 09:38 - Constitutional Constitutional: Present: fatigue, malaise. Absent: chills, fever(s), frequent falls - Cardiovascular Cardiovascular: Present: dyspnea, dyspnea on exertion, palpitations. Absent: chest pain at rest, chest pain with activity, claudication, diaphoresis, edema, radiating jaw, neck or arm pain, lightheadedness, orthopnea, PND - Respiratory Respiratory: Present: cough, dyspnea, dyspnea on exertion, wheezing, snoring, change in phlegm color. Absent: hemoptysis, pain on inspiration - Gastrointestinal Gastrointestinal: Present: abdominal pain, dyspepsia. Absent: coffee ground emesis, hematemesis, hematochezia, loose stools - Neurological Neurological: Absent: abnormal gait, abnormal speech, behavioral changes, dizziness, frequent falls, paresthesias, syncope - Hematologic/Lymphatic Hematologic/Lymphatic: Absent: easy bleeding, easy bruising, lymphadenopathy Medical,Surgical,& Family Hx - Medical History Cardio: History of: Hypertension Psychological: History of: Depression HEENT: History of: Eye Problem (wears glasses) Endocrine: History of: Diabetes Mellitus (NIDDM), Dyslipidemia Respiratory: History of: Asthma, Obstructive Sleep Apnea Gastrointestinal: History of: GERD - Surgical History Abdominal Surgeries: Patient denies: Colonoscopy, EGD Reproductive Surgeries: Surgical HX of;: Section - Family History Family History: Reports;: Family Heart Disease - Social History Smoking Status: Former smoker Frequency of Alcohol Use: None Type of Drug Use: None Marital Status: Lives With:: Spouse Functional capacity: independent ambulation Physical Examination Vital Signs Temp Pulse Resp BP Pulse Ox 98.5 F 129 H 22 228/139 69 L 03/28/17 09:37 03/28/17 09:37 03/28/17 09:37 03/28/17 09:37 03/28/17 09:37 Other: General: Appears well with no apparent distress. Pleasant and cooperative. Appears comfortable. Obese. HEENT: PERRL, normocephalic, atraumatic. Mucous membranes moist. No jaundice noted. Conjunctiva moist and clear, sclerae anicteric Neck: No JVD/HJR, no thyromegaly or lymphadenopathy noted. No carotid bruit appreciated Cardiac: Regular rate and rhythm. No murmur rub or gallop. Lungs: Clear to auscultation without accessory muscle use to assist the respiratory pattern. No wheezing auscultated. Abdomen: Soft, bowel sounds normoactive. Obese. Extremities: No clubbing, cyanosis noted. No edema noted. Upper extremity pulses 2+. Lower extremity pulses 2+. Capillary refill less than 3 seconds. Skin: No unusual lesions or rashes. No skin breakdown appreciated. Neuro: Awake, alert and oriented 3. Moves all extremities well without hemiparesis or paralysis. No essential tremor is appreciated. Result/EKG - Labs CBC & BMP: 03/29/17 03:43 03/29/17 03:43 Lab Results: I have reviewed the past 24 hour labs Labs: Laboratory Results - last 24 hr 03/28/17 03/28/17 03/28/17 09:53 15:44 16:57 WBC RBC Hgb Hct MCV MCH MCHC RDW Plt Count MPV Neut % (Auto) Lymph % (Auto) Nicol[place] % (Auto) Eos % (Auto) Baso % (Auto) Neut # (Auto) Lymph # (Auto) Nicollet # (Auto) Eos # (Auto) Baso # (Auto) Immature Gran % Nucleated RBC % Immature Gran # Nucleated RBCs # ABG pH ABG pCO2 ABG pO2 ABG HCO3 ABG Total CO2 ABG O2 Saturation ABG Base Excess FiO2 Sodium Potassium Chloride Carbon Dioxide Anion Gap BUN Creatinine GFR Calculation BUN/Creatinine Ratio Glucose POC Glucose 160 H Hemoglobin A1c Calculated Osmolality Calcium Magnesium Total Bilirubin 0.90 Troponin I < 0.015 Triglycerides Cholesterol LDL Cholesterol VLDL Cholesterol HDL Cholesterol Heart Disease Risk Ratio Free T4 TSH 3rd Generation Cold Agglutinin Screen 03/28/17 03/28/17 03/28/17 20:32 20:32 20:42 WBC RBC Hgb Hct MCV MCH MCHC RDW Plt Count MPV Neut % (Auto) Lymph % (Auto) Nicollet % (Auto) Eos % (Auto) Baso % (Auto) Neut # (Auto) Lymph # (Auto) Nicollet # (Auto) Eos # (Auto) Baso # (Auto) Immature Gran % Nucleated RBC % Immature Gran # Nucleated RBCs # ABG pH ABG pCO2 ABG pO2 ABG HCO3 ABG Total CO2 ABG O2 Saturation ABG Base Excess FiO2 Sodium Potassium Chloride Carbon Dioxide Anion Gap BUN Creatinine GFR Calculation BUN/Creatinine Ratio Glucose POC Glucose 122 H Hemoglobin A1c Calculated Osmolality Calcium Magnesium Total Bilirubin Troponin I Triglycerides Cholesterol LDL Cholesterol VLDL Cholesterol HDL Cholesterol Heart Disease Risk Ratio Free T4 0.97 TSH 3rd Generation 1.030 Cold Agglutinin Screen Negative 03/29/17 03/29/17 03/29/17 03:30 03:43 03:43 WBC 8.2 D RBC 4.87 Hgb 11.6 L Hct 39.3 MCV 80.7 L MCH 24 L MCHC 29.5 L RDW 19.8 H Plt Count 437 H MPV 9.5 L Neut % (Auto) 64.0 Lymph % (Auto) 21.1 L Nicollet % (Auto) 12.2 Eos % (Auto) 1.8 Baso % (Auto) 0.4 Neut # (Auto) 5.3 Lymph # (Auto) 1.7 Nicollet # (Auto) 1.0 H Eos # (Auto) 0.2 Baso # (Auto) 0.0 Immature Gran % 0.5 Nucleated RBC % 0.6 Immature Gran # 0.04 Nucleated RBCs # 0.05 ABG pH 7.388 ABG pCO2 55.4 H ABG pO2 37.5 L* ABG HCO3 30.2 H ABG Total CO2 30.3 H ABG O2 Saturation 76.7 L ABG Base Excess 6.8 H FiO2 21.00 Sodium 142 Potassium 4.1 Chloride 98 Carbon Dioxide 37 H Anion Gap 11.1 BUN 9 Creatinine 1.00 GFR Calculation 102 BUN/Creatinine Ratio 9.00 Glucose 121 H POC Glucose Hemoglobin A1c Calculated Osmolality 282.1 Calcium 8.6 Magnesium 2.1 Total Bilirubin Troponin I Triglycerides 85 Cholesterol 95 LDL Cholesterol 60.0 VLDL Cholesterol 17.0 HDL Cholesterol 31 L Heart Disease Risk Ratio 3.06 Free T4 1.10 TSH 3rd Generation 0.740 Cold Agglutinin Screen 03/29/17 03/29/17 03/29/17 03:43 03:43 07:44 WBC RBC Hgb Hct MCV MCH MCHC RDW Plt Count MPV Neut % (Auto) Lymph % (Auto) Nicollet % (Auto) Eos % (Auto) Baso % (Auto) Neut # (Auto) Lymph # (Auto) Nicollet # (Auto) Eos # (Auto) Baso # (Auto) Immature Gran % Nucleated RBC % Immature Gran # Nucleated RBCs # ABG pH ABG pCO2 ABG pO2 ABG HCO3 ABG Total CO2 ABG O2 Saturation ABG Base Excess FiO2 Sodium 141 Potassium 4.0 Chloride 98 Carbon Dioxide 38 H Anion Gap 9.0 BUN 10 Creatinine 1.00 GFR Calculation 102 BUN/Creatinine Ratio 10.00 Glucose 122 H POC Glucose 123 H Hemoglobin A1c 6.9 H Calculated Osmolality 280.3 Calcium 8.7 Magnesium 2.1 Total Bilirubin Troponin I Triglycerides Cholesterol LDL Cholesterol VLDL Cholesterol HDL Cholesterol Heart Disease Risk Ratio Free T4 TSH 3rd Generation Cold Agglutinin Screen 03/29/17 11:51 WBC RBC Hgb Hct MCV MCH MCHC RDW Plt Count MPV Neut % (Auto) Lymph % (Auto) Nicollet % (Auto) Eos % (Auto) Baso % (Auto) Neut # (Auto) Lymph # (Auto) Nicollet # (Auto) Eos # (Auto) Baso # (Auto) Immature Gran % Nucleated RBC % Immature Gran # Nucleated RBCs # ABG pH ABG pCO2 ABG pO2 ABG HCO3 ABG Total CO2 ABG O2 Saturation ABG Base Excess FiO2 Sodium Potassium Chloride Carbon Dioxide Anion Gap BUN Creatinine GFR Calculation BUN/Creatinine Ratio Glucose POC Glucose 98 Hemoglobin A1c Calculated Osmolality Calcium Magnesium Total Bilirubin Troponin I Triglycerides Cholesterol LDL Cholesterol VLDL Cholesterol HDL Cholesterol Heart Disease Risk Ratio Free T4 TSH 3rd Generation Cold Agglutinin Screen - EKG EKG results: interpreted by me, sinus rhythm EKG shows: tachycardia
[2017-03-29] MEDS: cefTRIAXone 1,000 MG in SODIUM CHLORIDE 0.9% 100 ML IV SCH (14:58)
--- NOTE | 2017-03-29 18:19 | ECHO Report ---
Jessica Mendoza 03/29/2017 Exam Date: 10:20 Referring Physician: iraj Diaz Technologist: YASIR CLEVELAND Age: 46 Ht (in): 60 Wt (lb): 311 FExam [facility] Gender: Echo [id number]: Dyspnea, unspecified, Essential (priIndications:rustam) hypertension, Shortness of breath, Pneumonia, Diabetes, Difficult study BP: 120 / 87 HR: 96 SinusRhythm: GoodTechnical Quality: IMPRESSIONS Mild to moderate left ventricular hypertrophy. Left ventricular ejection fraction is estimated at 55-60 %. 1 - 2 + RVE. The right atrium is 1 + enlarged. The left atrium is normal in size. Mild mitral valve sclerosis. Moderate tricuspid valve regurgitation. Tricuspid regurgitation velocities suggest a PAP of 80 mmHg. MEASUREMENTS (Male / Female) Normal Values 2D ECHO LV Diastolic Diameter PLAX 4.3 cm 4.2 - 5.9 / 3.9 - 5.3 cm LV Systolic Diameter PLAX 2.6 cm LV Fractional Shortening PLAX 39.1 % IVS Diastolic Thickness 1.7 cm 0.6 - 1.0 / 0.6 - 0.9 cm LVPW Diastolic Thickness 1.6 cm 0.6 - 1.0 / 0.6 - 0.9 cm RV Internal Dim ED PLAX 3.6 cm Aortic Root Diameter 2.9 cm LA Systolic Diameter LX 3.8 cm 3.0 - 4.0 / 2.7 - 3.8 cm DOPPLER TR Peak Velocity 417.0 cm/s TR Peak Gradient 69.6 mmHg FINDINGS Left Ventricle Normal left ventricular cavity size. Mild to moderate left ventricular hypertrophy. Left ventricular ejection fraction is estimated at 55-60 %. Right Ventricle 1 - 2 + RVE Right Atrium The right atrium is 1 + enlarged Left Atrium The left atrium is normal in size. Mitral Valve Mild mitral valve sclerosis. Aortic Valve Morphologically normal aortic valve without significant sclerosis or stenosis. There is no aortic regurgitation. Tricuspid Valve Morphologically normal tricuspid valve. Moderate tricuspid valve regurgitation.tricuspid regurgitation velocities suggest a PAP of 80 mmHg. Pulmonic Valve Morphologically normal pulmonic valve without significant stenosis. There is no pulmonic regurgitation. Pericardium Normal pericardium without effusion. Aorta Normal ascending aorta dimension. Arik Vogt MD (Electronically Signed) 29 March 2017 Final Date: 18:17
[2017-03-30] MEDS: ACETAMINOPHEN 325 MG TABLET PO PRN ×3 (00:29→16:42)
[2017-03-30] MEDS: LEVALBUTEROL 1.25 MG/3 ML NEB RESP TX SCH ×4 (01:55→19:16)
[2017-03-30] MEDS: INSULIN LISPRO 100 UNIT/ML SUBCUT SCH ×4 (08:26→20:32)
[2017-03-30] MEDS: FUROSEMIDE 20 MG TABLET PO SCH (08:27)
[2017-03-30] MEDS: MONTELUKAST 10 MG TABLET PO SCH (08:27)
[2017-03-30] MEDS: buPROPion XL 150 MG TABLET PO SCH (08:27)
[2017-03-30] MEDS: CARVEDILOL 6.25 MG TABLET PO SCH ×2 (08:27→20:32)
[2017-03-30] MEDS: PANTOPRAZOLE 40 MG TABLET PO SCH (08:27)
[2017-03-30] MEDS: ATORVASTATIN 10 MG TABLET PO SCH (08:27)
[2017-03-30] MEDS: LEVOFLOXACIN INJ 750 MG in PREMIX 1 EACH IV SCH (08:29)
[2017-03-30 08:48] LABS: Basophils % 0.4 % (0.0-0.8); Eosinophils # 0.2 10*3/uL (0.0-0.87); Eosinophils % 1.6 % (0.00-10.9); Hematocrit 38.5 VOL% (35.7-47.0); Hemoglobin 11.3 GM/DL (12.0-16.0); Immature Granulocytes % 0.3 %; Immature Granulocytes Absolute 0.03 #; Lymphocytes # 2.6 10*3/uL (1.4-4.0); Lymphocytes % 28.5 % (21.3-54.2); Mean Corpuscular HGB Conc 29.4 GM/DL (32-36); Mean Corpuscular Hemoglobin 24 PG (27-34); Mean Corpuscular Volume 82.6 FL (87-102); Mean Platelet Volume 9.2 FL (9.6-12.0); Monocytes # 1.1 10*3/uL (0.11-0.8); Monocytes % 12.1 % (1.7-12.7); Neutrophils # 5.3 10*3/uL (1.4-7.4); Neutrophils % 57.1 % (38.7-73.9); Platelet Count 393 T/CUMM (130-400); Red Blood Count 4.66 MC/CUMM (3.8-5.5); Red Cell Distribution Width 19.3 % (9.3-17.3); White Blood Count 9.2 T/CUMM (4-12)
[2017-03-30 09:06] LABS: Calcium 8.7 MG/DL (8.5-10.1); Magnesium 2.3 MG/DL (1.8-2.4); Osmolality,Calculated 276.4 MOS/KG (273-304); Potassium 4.7 MMOL/L (3.5-5.1)
--- NOTE | 2017-03-30 09:37 | Pulmonology Progress Note ---
Pulmonary - PN: Subj Interval history: This 46-year-old black female has asthma and obstructive sleep apnea. Her echocardiogram showed severe pulmonary hypertension. She uses CPAP at night. Do not know if she has obesity hypoventilation. We need to check her ABGs. Her chest x-ray shows a plump right hilum that may well be enlarged pulmonary artery but a CT would be helpful. I will order a CT PE protocol since she has pulmonary hypertension. Check ABGs. Exam (Progress Note) - Constitutional Vitals: Period Temp Pulse Resp BP Sys/Zuñiga Pulse Ox Last 24 Hr 98.1 F-101.4 F 90-113 16-20 110-139/55-87 90-99 Exam: Patient's alert oriented wearing nasal oxygen. Vital signs normal. Pupils react to light. Throat is clear. Neck supple no bruits. Chest is clear I do not hear any wheezing. Heart normal rate and rhythm no murmurs. Abdomen grand obese unable to palpate abdominal organs. Extremities no clubbing cyanosis. Trace of edema. Calves nontender. Results - Labs CBC & BMP: 03/30/17 08:15 03/30/17 08:15 Lab Results: I have reviewed the past 24 hour labs Assessment and Plan (1) Pulmonary hypertension Status: Chronic Assessment and plan: She may well have primary pulmonary hypertension. However she does have several problems that can lead to pulmonary hypertension including sleep apnea and asthma. Asthma does not appear to be severe enough to explain that. Perhaps she has obesity hypoventilation. Will check ABGs. Also will get a CT to see what the right hilum is. That may be an enlarged pulmonary artery. Certainly she could have pulmonary emboli as well. Current Visit: Yes (2) Asthma Status: Chronic Assessment and plan: Patient sounds clear. Asthma under control. Current Visit: Yes (3) Sleep apnea Status: Chronic Assessment and plan: She uses CPAP at night. Need to check her for obesity hypoventilation. Current Visit: Yes (4) Obesity Status: Chronic Assessment and plan: We will need a program for weight loss. She weighs 141 kg. BMI is 60. Current Visit: Yes
--- NOTE | 2017-03-30 09:52 | Hospitalist Progress Note ---
Assessment and Plan - Time spent with patient Time spent with patient: Greater than 30 minutes (1) Pneumonia Status: Acute Assessment and plan: Switch antibiotics to Levaquin. Source is likely pulmonary. Current Visit: Yes (2) Dyspnea Status: Acute Assessment and plan: Multifactorial. Associated with hypoxemia. Apparently the patient has a history of asthma. Continue breathing treatments, Singulair. Pulmonary has order CT chest with PE protocol. Current Visit: Yes (3) Tachycardia Status: Acute Assessment and plan: Stable, appreciate Cards input. Current Visit: Yes (4) Dysphagia Status: Acute Assessment and plan: GI consulted. Current Visit: Yes (5) Hypertension Status: Acute Assessment and plan: Continue medications. Current Visit: Yes (6) Diabetes Status: Chronic Assessment and plan: Continue current management. Current Visit: Yes Qualifiers: Diabetes mellitus type: type 2 Hospitalist: Subjective Interval history: Patient has developed a fever overnight. Otherwise she feels better than from admission. Exam - Constitutional Vitals: Period Temp Pulse Resp BP Sys/Zuñiga Pulse Ox Last 24 Hr 98.1 F-101.4 F 90-113 16-20 110-139/55-87 90-99 General appearance: no acute distress, morbidly obese - Head Head exam: Present: normocephalic, atraumatic - Eye Eye exam: Present: EOMI Pupils: Present: JOSE - ENT ENT exam: Present: normal exam - Neck Neck exam: Present: normal inspection - Respiratory Respiratory exam: Present: clear to auscultation bilaterally, decreased breath sounds. Absent: rhonchi, wheezes - Cardiovascular Cardiovascular exam: Present: regular rate and rhythm. Absent: gallop, rubs, systolic murmur - GI/Abdominal GI/Abdominal exam: Present: normal bowel sounds, soft. Absent: distended, firm , guarding, tenderness, rebound - Extremities Exam Extremities exam: Present: normal inspection. Absent: calf tenderness, edema Results - Labs CBC & BMP: 03/30/17 08:15 03/30/17 08:15 Lab Results: I have reviewed the past 24 hour labs
[2017-03-30 09:56] LABS: ABG HCO3 32.7 MMOL/L (20-26); ABG Oxygen Saturation 93.2 % (95-100); ABG PH 7.303 (7.35-7.45); ABG PO2 71.7 MM HG (80-95); Allen Test Positive
--- NOTE | 2017-03-30 10:46 | CT Report ---
History is hilar enlargement, sarcoid, dyspnea 80 cc Omnipaque 350 utilized. Axial images obtained with 2-D multiplanar reconstruction images also stored and interpreted The heart is enlarged. Minimal pericardial thickening or fluid. No persistent filling defects seen in the pulmonary arteries. The 1.5 cm right paratracheal and right hilar nodes present. 1.8 cm subcarinal nodes present. No significant pleural effusions present there are patchy bilateral groundglass pulmonary opacities present. Some mild scattered linear scarring or discoid atelectasis present bilaterally. Impression: 1. Cardiomegaly with patchy bilateral groundglass pulmonary opacities ridge. Infiltrates or pulmonary edema would be the main considerations 2. Minimal pericardial thickening or fluid 3. Mildly enlarged mediastinal and right hilar nodes. among considerations would include sarcoid as well as other etiologies including infectious or underlying neoplastic etiologies. Close clinical correlation requested. Comparison with prior films would certainly be helpful as well The CT exam was performed using one or more of the following dose reduction techniques: Automated exposure control, adjustment of the mA and/or kV according to patient size, or use of iterative reconstruction technique. PROCEDURE INTERPRETED AT [facility] DEPARTMENT OF RADIOLOGY Final Report Signed by: Dr. Diane Saba
--- NOTE | 2017-03-30 13:12 | Cardiology Progress Note ---
Assessment and Plan (1) Sinus tachycardia Status: Resolved Assessment and plan: The heart rate is better with the addition of low-dose carvedilol. blood gases indicated high PCO2. She seems to look and feel okay Echo shows good pumping heart but pulmonary hypertension. CT PE showed no pulmonary embolus Continue the low-dose of carvedilol Treat pulmonary hypertension per pulmonary medicine Current Visit: Yes (2) Congestive heart failure Status: Acute Current Visit: Yes (3) Dyspnea on exertion Status: Acute Current Visit: Yes (4) Hypertension Status: Acute Current Visit: Yes (5) Pneumonia Status: Acute Current Visit: Yes (6) Tachycardia Status: Acute Current Visit: Yes (7) Asthma Status: Chronic Current Visit: Yes (8) Diabetes Status: Chronic Current Visit: Yes Qualifiers: Diabetes mellitus type: type 2 (9) GERD (gastroesophageal reflux disease) Status: Chronic Current Visit: Yes (10) Obesity Status: Chronic Current Visit: Yes (11) Pulmonary hypertension Status: Chronic Current Visit: Yes (12) Sleep apnea Status: Chronic Current Visit: Yes Cardiology - PN: Subj Interval history: No chest pain ; her shortness of breath is less Exam (Progress Note) - Constitutional Vitals: Period Temp Pulse Resp BP Sys/Zuñiga Pulse Ox Last 24 Hr 98.5 F-101.4 F 90-113 16-20 110-139/55-83 90-99 Exam: HEENT: Pupils equal, reactive to light and accommodation Neck: NoJVD or bruit Lungs clear to auscultation Heart: Regular rhythm rate with normal S1 and S2. Apical S4 Abdomen: No hepatosplenomegaly Spine/extremities: No clubbing, cyanosis, or edema Neuro: Nonfocal Psych: No depression or anxiety Result/EKG - Labs CBC & BMP: 03/30/17 08:15 03/30/17 08:15 Lab Results: I have reviewed the past 24 hour labs Labs: Laboratory Results - last 24 hr 03/29/17 03/29/17 03/30/17 16:16 19:47 08:15 WBC 9.2 RBC 4.66 Hgb 11.3 L Hct 38.5 MCV 82.6 L MCH 24 L MCHC 29.4 L RDW 19.3 H Plt Count 393 MPV 9.2 L Neut % (Auto) 57.1 Lymph % (Auto) 28.5 Duc[place]ne % (Auto) 12.1 Eos % (Auto) 1.6 Baso % (Auto) 0.4 Neut # (Auto) 5.3 Lymph # (Auto) 2.6 [place]ne # (Auto) 1.1 H Eos # (Auto) 0.2 Baso # (Auto) 0.0 Immature Gran % 0.3 Nucleated RBC % 0.0 Immature Gran # 0.03 Nucleated RBCs # 0.00 ABG pH ABG pCO2 ABG pO2 ABG HCO3 ABG Total CO2 ABG O2 Saturation ABG Base Excess FiO2 Sodium Potassium Chloride Carbon Dioxide Anion Gap BUN Creatinine GFR Calculation BUN/Creatinine Ratio Glucose POC Glucose 96 113 H Calculated Osmolality Calcium Magnesium 03/30/17 03/30/17 08:15 09:50 WBC RBC Hgb Hct MCV MCH MCHC RDW Plt Count MPV Neut % (Auto) Lymph % (Auto) [place] % (Auto) Eos % (Auto) Baso % (Auto) Neut # (Auto) Lymph # (Auto) [place] # (Auto) Eos # (Auto) Baso # (Auto) Immature Gran % Nucleated RBC % Immature Gran # Nucleated RBCs # ABG pH 7.303 L ABG pCO2 78.0 H* ABG pO2 71.7 L ABG HCO3 32.7 H ABG Total CO2 35.0 H ABG O2 Saturation 93.2 L ABG Base Excess 9.0 H FiO2 36.00 Sodium 140 Potassium 4.7 Chloride 98 Carbon Dioxide 38 H Anion Gap 8.7 BUN 6 L Creatinine 0.90 GFR Calculation 116 BUN/Creatinine Ratio 6.00 Glucose 100 POC Glucose Calculated Osmolality 276.4 Calcium 8.7 Magnesium 2.3 - EKG EKG results: interpreted by me
[2017-03-31] MEDS: LEVALBUTEROL 1.25 MG/3 ML NEB RESP TX SCH ×4 (00:20→20:02)
[2017-03-31 04:54] LABS: Calcium 8.9 MG/DL (8.5-10.1); Magnesium 2.4 MG/DL (1.8-2.4); Potassium 4.5 MMOL/L (3.5-5.1)
[2017-03-31 04:56] LABS: Calcium 9.2 MG/DL (8.5-10.1); Osmolality,Calculated 271.8 MOS/KG (273-304); Potassium 4.5 MMOL/L (3.5-5.1)
[2017-03-31 05:00] LABS: Basophils % 0.4 % (0.0-0.8); Eosinophils # 0.1 10*3/uL (0.0-0.87); Eosinophils % 0.8 % (0.00-10.9); Hematocrit 40.1 VOL% (35.7-47.0); Hemoglobin 11.7 GM/DL (12.0-16.0); Immature Granulocytes % 0.4 %; Immature Granulocytes Absolute 0.04 #; Lymphocytes # 1.8 10*3/uL (1.4-4.0); Lymphocytes % 19.8 % (21.3-54.2); Mean Corpuscular HGB Conc 29.2 GM/DL (32-36); Mean Corpuscular Hemoglobin 24 PG (27-34); Mean Platelet Volume 9.5 FL (9.6-12.0); Monocytes # 0.9 10*3/uL (0.11-0.8); Monocytes % 10.1 % (1.7-12.7); Neutrophils # 6.4 10*3/uL (1.4-7.4); Neutrophils % 68.5 % (38.7-73.9); Platelet Count 464 T/CUMM (130-400); Red Blood Count 4.95 MC/CUMM (3.8-5.5); Red Cell Distribution Width 19.2 % (9.3-17.3); White Blood Count 9.3 T/CUMM (4-12)
[2017-03-31 06:07] LABS: Anisocytosis 1+; Platelet Estimate Normal
[2017-03-31] MEDS: INSULIN LISPRO 100 UNIT/ML SUBCUT SCH ×3 (09:01→16:33)
[2017-03-31] MEDS: ATORVASTATIN 10 MG TABLET PO SCH (09:25)
[2017-03-31] MEDS: CARVEDILOL 6.25 MG TABLET PO SCH ×2 (09:25→21:38)
[2017-03-31] MEDS: FUROSEMIDE 20 MG TABLET PO SCH (09:25)
[2017-03-31] MEDS: PANTOPRAZOLE 40 MG TABLET PO SCH (09:25)
[2017-03-31] MEDS: MONTELUKAST 10 MG TABLET PO SCH (09:25)
[2017-03-31] MEDS: LEVOFLOXACIN INJ 750 MG in PREMIX 1 EACH IV SCH (09:26)
[2017-03-31] MEDS: buPROPion XL 150 MG TABLET PO SCH (09:26)
[2017-03-31] MEDS: ACETAMINOPHEN 325 MG TABLET PO PRN (09:32)
--- NOTE | 2017-03-31 10:23 | Pulmonology Progress Note ---
Pulmonary - PN: Subj Interval history: This 46-year-old black female has asthma and obstructive sleep apnea. Her echocardiogram showed severe pulmonary hypertension. She uses CPAP at night. Do not know if she has obesity hypoventilation. We need to check her ABGs. Her chest x-ray shows a plump right hilum that may well be enlarged pulmonary artery but a CT would be helpful. I will order a CT PE protocol since she has pulmonary hypertension. Check ABGs. 03/31/2017 CT scan showed some groundglass changes in the lungs consistent with pulmonary edema. No nasim pneumonias. No pleural effusion. ABG showed hypercarbia. She has obesity hypoventilation syndrome. We need to keep her O2 sats in the 88-92% range to keep her from becoming drowsy from hypercarbia. At the present time it seems to be about 1-1/2 L to do that. Patient is fairly responsive today. The obesity hypoventilation syndrome is likely the cause of her pulmonary hypertension. She has fairly normal left ventricular function. Pulmonary edema is multifactorial. Exam (Progress Note) - Constitutional Vitals: Period Temp Pulse Resp BP Sys/Zuñiga Pulse Ox Last 24 Hr 98.5 F-101 F 90-109 16-20 111-137/55-80 83-100 Exam: Patient's alert oriented wearing nasal oxygen. Vital signs normal. Pupils react to light. Throat is clear. Neck supple no bruits. Chest is clear I do not hear any wheezing. Heart normal rate and rhythm no murmurs. Abdomen grand obese unable to palpate abdominal organs. Extremities no clubbing cyanosis. Trace of edema. Calves nontender. Little change from yesterday. Results - Labs CBC & BMP: 03/31/17 04:08 03/31/17 04:08 Lab Results: I have reviewed the past 24 hour labs - Diagnostic Findings Procedure: CT - chest: image reviewed by me (Groundglass changes consistent with pulmonary edema. She has some enlarged mediastinal and hilar nodes. Would probably just follow these radiographically. A PET scan may be helpful.) Assessment and Plan (1) Pulmonary hypertension Status: Chronic Assessment and plan: She may well have primary pulmonary hypertension. However she does have several problems that can lead to pulmonary hypertension including sleep apnea and asthma. Asthma does not appear to be severe enough to explain that. Perhaps she has obesity hypoventilation. Will check ABGs. Also will get a CT to see what the right hilum is. That may be an enlarged pulmonary artery. Certainly she could have pulmonary emboli as well. 03/31/2017 she has pulmonary hypertension with a peak pulmonary artery pressure estimated at 80. I think this is likely caused by her obesity hypoventilation syndrome/obstructive sleep apnea. Also may have some LV diastolic dysfunction. Current Visit: Yes (2) Asthma Status: Chronic Assessment and plan: Patient sounds clear. Asthma under control. Current Visit: Yes (3) Sleep apnea Status: Chronic Assessment and plan: She uses CPAP at night. Need to check her for obesity hypoventilation. 03/31/2017 using CPAP at night. This may need to be readdressed, in view of her obesity hypoventilation syndrome. BiPAP may be more effective. Current Visit: Yes (4) Obesity Status: Chronic Assessment and plan: We will need a program for weight loss. She weighs 141 kg. BMI is 60. 03/31/2017 I have discussed with her the need to lose weight over time. May be a candidate for bariatric surgery. Current Visit: Yes
--- NOTE | 2017-03-31 13:59 | Hospitalist Progress Note ---
Assessment and Plan - Time spent with patient Time spent with patient: Greater than 30 minutes (1) Pneumonia Status: Acute Assessment and plan: Continue current management. Improving overall. Current Visit: Yes (2) Dyspnea Status: Acute Assessment and plan: Multifactorial. Associated with hypoxemia. Apparently the patient has a history of asthma. Continue breathing treatments, Singulair. Chest CT reveals pneumonia with no evidence of embolism. Various other findings noted on chest CT defer to pulmonary. Current Visit: Yes (3) Tachycardia Status: Acute Assessment and plan: Stable, appreciate Cards input. Current Visit: Yes (4) Dysphagia Status: Acute Assessment and plan: GI consulted. Current Visit: Yes (5) Hypertension Status: Acute Assessment and plan: Continue medications. Current Visit: Yes (6) Diabetes Status: Chronic Assessment and plan: Continue current management. Current Visit: Yes Qualifiers: Diabetes mellitus type: type 2 Hospitalist: Subjective Interval history: Patient had a mild drop in temperature 101.3. However it has appeared to improve. She has improving symptoms and is doing better overall. Exam - Constitutional Vitals: Period Temp Pulse Resp BP Sys/Zuñiga Pulse Ox Last 24 Hr 98.6 F-101 F 81-109 16-20 111-137/55-79 83-100 General appearance: no acute distress - Head Head exam: Present: normocephalic, atraumatic - Eye Eye exam: Present: EOMI Pupils: Present: JOSE - ENT ENT exam: Present: normal exam - Neck Neck exam: Present: normal inspection - Respiratory Respiratory exam: Present: clear to auscultation bilaterally. Absent: rhonchi, wheezes - Cardiovascular Cardiovascular exam: Present: regular rate and rhythm. Absent: gallop, rubs, systolic murmur - GI/Abdominal GI/Abdominal exam: Present: normal bowel sounds, soft. Absent: distended, firm , guarding, tenderness, rebound - Extremities Exam Extremities exam: Present: normal inspection. Absent: calf tenderness, edema Results - Labs CBC & BMP: 03/31/17 04:08 03/31/17 04:08 Lab Results: I have reviewed the past 24 hour labs
--- NOTE | 2017-03-31 17:22 | Cardiology Progress Note ---
Assessment and Plan (1) Sinus tachycardia Status: Resolved Assessment and plan: The heart rate is better with the addition of low-dose carvedilol. blood gases indicated high PCO2. She seems to look and feel okay Echo shows good pumping heart but pulmonary hypertension. CT PE showed no pulmonary embolus Continue the low-dose of carvedilol Treat pulmonary hypertension per pulmonary medicine 03/31/17: Still some sinus tach, but less No symptoms with it This is probably secondary to her lung illness Echo showed good pumping heart I will sign off. Call if cardiology is needed in the future Okay with me to move off telemetry to non-monitor bed Thank you for allowing me to participate in this patient's care Current Visit: Yes (2) Congestive heart failure Status: Acute Current Visit: Yes (3) Dyspnea on exertion Status: Acute Current Visit: Yes (4) Hypertension Status: Acute Current Visit: Yes (5) Pneumonia Status: Acute Current Visit: Yes (6) Tachycardia Status: Acute Current Visit: Yes (7) Asthma Status: Chronic Current Visit: Yes (8) Diabetes Status: Chronic Current Visit: Yes Qualifiers: Diabetes mellitus type: type 2 (9) GERD (gastroesophageal reflux disease) Status: Chronic Current Visit: Yes (10) Obesity Status: Chronic Current Visit: Yes (11) Pulmonary hypertension Status: Chronic Current Visit: Yes (12) Sleep apnea Status: Chronic Current Visit: Yes Cardiology - PN: Subj Interval history: No chest pain. Less shortness of breath. He does not feel her heart racing Exam (Progress Note) - Constitutional Vitals: Period Temp Pulse Resp BP Sys/Zuñiga Pulse Ox Last 24 Hr 98.1 F-100.3 F 81-109 16-20 111-137/55-79 90-100 Exam: HEENT: Pupils equal, reactive to light and accommodation Neck: NoJVD or bruit Lungs clear to auscultation Heart: Regular rhythm rate with normal S1 and S2. Apical S4 Abdomen: No hepatosplenomegaly Spine/extremities: No clubbing, cyanosis, or edema Neuro: Nonfocal Psych: No depression or anxiety Result/EKG - Labs CBC & BMP: 03/31/17 04:08 03/31/17 04:08 Lab Results: I have reviewed the past 24 hour labs Labs: Laboratory Results - last 24 hr 03/28/17 03/30/17 03/31/17 20:32 20:19 04:08 WBC 9.3 RBC 4.95 Hgb 11.7 L Hct 40.1 MCV 81.0 L MCH 24 L MCHC 29.2 L RDW 19.2 H Plt Count 464 H MPV 9.5 L Neut % (Auto) 68.5 Lymph % (Auto) 19.8 L Calloway % (Auto) 10.1 Eos % (Auto) 0.8 Baso % (Auto) 0.4 Neut # (Auto) 6.4 Lymph # (Auto) 1.8 [place] # (Auto) 0.9 H Eos # (Auto) 0.1 Baso # (Auto) 0.0 Immature Gran % 0.4 Nucleated RBC % 0.0 Immature Gran # 0.04 Nucleated RBCs # 0.00 Platelet Estimate Normal Anisocytosis 1+ Sodium Potassium Chloride Carbon Dioxide Anion Gap BUN Creatinine GFR Calculation BUN/Creatinine Ratio Glucose POC Glucose 117 H Calculated Osmolality Calcium Magnesium Angiotensin Convert Enz 18 03/31/17 03/31/17 03/31/17 04:08 04:08 07:32 WBC RBC Hgb Hct MCV MCH MCHC RDW Plt Count MPV Neut % (Auto) Lymph % (Auto) [place] % (Auto) Eos % (Auto) Baso % (Auto) Neut # (Auto) Lymph # (Auto) [place] # (Auto) Eos # (Auto) Baso # (Auto) Immature Gran % Nucleated RBC % Immature Gran # Nucleated RBCs # Platelet Estimate Anisocytosis Sodium 136 137 Potassium 4.5 4.5 Chloride 93 L 93 L Carbon Dioxide 39 H 40 H Anion Gap 8.5 8.5 BUN 6 L 6 L Creatinine 0.90 0.90 GFR Calculation 116 116 BUN/Creatinine Ratio 6.00 6.00 Glucose 121 H 118 H POC Glucose 132 H Calculated Osmolality 270.0 L 271.8 L Calcium 8.9 9.2 Magnesium 2.4 Angiotensin Convert Enz 03/31/17 03/31/17 11:24 16:18 WBC RBC Hgb Hct MCV MCH MCHC RDW Plt Count MPV Neut % (Auto) Lymph % (Auto) [place] % (Auto) Eos % (Auto) Baso % (Auto) Neut # (Auto) Lymph # (Auto) [place] # (Auto) Eos # (Auto) Baso # (Auto) Immature Gran % Nucleated RBC % Immature Gran # Nucleated RBCs # Platelet Estimate Anisocytosis Sodium Potassium Chloride Carbon Dioxide Anion Gap BUN Creatinine GFR Calculation BUN/Creatinine Ratio Glucose POC Glucose 141 H 95 Calculated Osmolality Calcium Magnesium Angiotensin Convert Enz
[2017-04-01] MEDS: LEVALBUTEROL 1.25 MG/3 ML NEB RESP TX SCH ×4 (01:28→20:00)
[2017-04-01] MEDS: INSULIN LISPRO 100 UNIT/ML SUBCUT SCH ×5 (01:48→21:26)
[2017-04-01 04:02] LABS: Basophils % 0.4 % (0.0-0.8); Eosinophils # 0.2 10*3/uL (0.0-0.87); Eosinophils % 2.2 % (0.00-10.9); Hematocrit 37.1 VOL% (35.7-47.0); Immature Granulocytes % 0.3 %; Immature Granulocytes Absolute 0.03 #; Lymphocytes # 2.6 10*3/uL (1.4-4.0); Mean Corpuscular HGB Conc 28.8 GM/DL (32-36); Mean Corpuscular Hemoglobin 23 PG (27-34); Mean Corpuscular Volume 80.8 FL (87-102); Monocytes # 1.2 10*3/uL (0.11-0.8); Monocytes % 13.3 % (1.7-12.7); Neutrophils % 54.8 % (38.7-73.9); Platelet Count 387 T/CUMM (130-400); Red Blood Count 4.59 MC/CUMM (3.8-5.5); White Blood Count 9.1 T/CUMM (4-12)
[2017-04-01 04:16] LABS: Calcium 8.7 MG/DL (8.5-10.1); Hemoglobin 11.1 GM/DL (12.0-16.0); Magnesium 2.2 MG/DL (1.8-2.4); Osmolality,Calculated 277.4 MOS/KG (273-304)
[2017-04-01] MEDS: MONTELUKAST 10 MG TABLET PO SCH (09:00)
[2017-04-01] MEDS: FUROSEMIDE 20 MG TABLET PO SCH (09:00)
[2017-04-01] MEDS: buPROPion XL 150 MG TABLET PO SCH (09:00)
[2017-04-01] MEDS: CARVEDILOL 6.25 MG TABLET PO SCH ×2 (09:00→21:15)
[2017-04-01] MEDS: PANTOPRAZOLE 40 MG TABLET PO SCH (09:00)
[2017-04-01] MEDS: ATORVASTATIN 10 MG TABLET PO SCH (09:00)
[2017-04-01] MEDS: LEVOFLOXACIN INJ 750 MG in PREMIX 1 EACH IV SCH (09:08)
--- NOTE | 2017-04-01 09:34 | Gastrointestinal Progress Note ---
Assessment and Plan (1) Abdominal pain Status: Acute Assessment and plan: 04/01-abdominal pain mild in nature after meals. No nausea or vomiting. Breathing improved slightly per patient. Continue to follow until pulmonary feels safe to proceed with EGD. Plan an addendum to followed by Dr. Thompson. 03/29-6 week history of upper abdominal pain with precipitating factors including exertion and ingestion of a meal. No history of gallbladder disease in patient or family. History of reflux and dysphagia to solids. Ultrasound negative other than hepatic steatosis. Plan an addendum to followed by Dr. Thompson. Current Visit: Yes Gastroenterology - PN: Subj Interval history: CC: Abdominal pain Patient is seen awake and alert with family at bedside. States she is feeling a little better today than she did over the weekend. She states that her breathing seems to be improved and she is able to lie flat comfortably at this time. She denies any dysphagia however states she is still having some upper abdominal pain with meals at times. Denies any nausea or vomiting. Abdomen soft, nontender. Cardiology has signed off at this time the patient is to be transferred out of telemetry. Pulmonology is still following with CT scan on yesterday showing consistency with pulmonary edema. ABG is also showing hypercarbia. We will continue to follow at this time until pulmonary feels it is safe to proceed with EGD. ROS: Denies shortness of breath or chest pain Exam (Progress Note) - Constitutional Vitals: Period Temp Pulse Resp BP Sys/Zuñiga Pulse Ox Last 24 Hr 97.7 F-98.6 F 81-106 16-22 111-132/58-79 78-99 General appearance: normal weight, morbidly obese - Head Head exam: Present: normal inspection, normocephalic - Eye Eye exam: Present: other (Lids and conjunctive are unremarkable). Absent: scleral icterus - ENT ENT exam: Present: normal exam, normal oropharynx - Neck Neck exam: Present: normal inspection - Respiratory Respiratory exam: Present: clear to auscultation bilaterally. Absent: rales, rhonchi, wheezes - Cardiovascular Cardiovascular exam: Present: regular rate and rhythm. Absent: diastolic murmur , JVD, systolic murmur - GI/Abdominal GI/Abdominal exam: Present: normal bowel sounds, soft. Absent: ascites, distended, mass, organomegaly, tenderness - Extremities Exam Extremities exam: Present: normal inspection, full ROM - Back Exam Back exam: Present: normal inspection - Neurological Exam Neurological exam: Present: alert, oriented X3 - Psychiatric Psychiatric exam: Present: normal affect, normal mood - Skin Skin exam: Present: normal color, warm, dry Results - Labs CBC & BMP: 04/01/17 03:36 04/01/17 03:36 Lab Results: I have reviewed the past 24 hour labs
--- NOTE | 2017-04-01 10:16 | Pulmonology Progress Note ---
Pulmonary - PN: Subj Interval history: Davon Winslow, ANP-BC, GNP-BC, acting as scribe for Dr. Gabriel Dolan This is a 46-year-old black female who we saw in initial pulmonary consultation on 03/28/2017. At that time, our impressions were: 1. Lifelong history of asthma. Probably exacerbated by gastroesophageal reflux and microaspiration. 2. Solid dysphasia suspect esophageal stricture 3. Gastroesophageal reflux disease with a history strongly suggestive of nocturnal microaspiration 4. Bilateral hilar adenopathy. Possible sarcoidosis. 5. Right lower lung medial basal and basilar segment interstitial scars. Watch for infiltrate. Likely scarring from gastric aspiration 6. Hypoxemia. Etiology undetermined. 7. Chronic bilateral lower extremity edema. Look for DVT 8. High blood pressure 9. [id number] diabetes mellitus 10. Hyper-lipidemia 11. Morbid obesity 12. See past history 03/29/2017. Today the patient's breathing is a little better. She has asthma. She has some mainly tracheal and large airway wheezing. She is in aspirator. She also has solid dysphasia and probable esophageal stricture. She is getting a GI evaluation today. Patient has bilateral hilar adenopathy. She is not aware of any history of sarcoidosis. Angiotensin-converting enzyme has been ordered but is pending. I have stopped the patient's lisinopril. She has non- insulin-dependent diabetes mellitus, hyperlipidemia and high blood pressure. There is also a history of obstructive sleep apnea. We should continue her inhalation therapy. She has been started on Singulair. She is also on antibiotics. Today's x-ray shows either scarring or infiltrate in the medial basilar and posterior basal segments of the right lower lung. Cultures are pending. Doppler venograms of the lower extremities. 04/01/2017. The patient was seen today along with her nurse. There was a family member in the room also, but that person was in the bedside chair with a blanket over her head. He/she did not wake any time when we were in the room. Patient reports that her breathing is improved with the addition of Singulair. On chest exam the previously noted large airway wheezes have resolved. Angiotensin-converting enzyme level has been reported at 18 consistent with burned out sarcoidosis. Patient has known obstructive sleep apnea. She states that she uses her CPAP nightly. CT of the chest on 03/30/2017 showed cardiomegaly with patchy bilateral groundglass pulmonary opacities, minimal pericardial thickening or fluid, and mildly enlarged mediastinal and right hilar nodes. Echocardiogram done 03/29/[address] Vogt showed mild to moderate left ventricular hypertrophy with an ejection fraction estimated at 55-60%. Pulmonary artery pressure was approximately 80 mmHg consistent with pulmonary hypertension. For this, we have started Norvasc 5 mg daily. Sputum Gram stain showed few gram-positive cocci in pairs, few gram- positive cocci in clusters, and few gram-negative rods. Sputum culture, however , grew no organisms. Medications have been reviewed. Norvasc 5 mg daily started today. Labs been reviewed. White count is 9100 with 54.8% segs; H&H 11.1/37.1 with decreased indices and increased red blood cell distribution with; platelet count 387,000; creatinine 0.80, BUN 6, sodium 140, potassium 4.0, magnesium 2.2 Exam (Progress Note) - Constitutional Vitals: Period Temp Pulse Resp BP Sys/Zuñiga Pulse Ox Last 24 Hr 97.7 F-98.6 F 81-106 16-22 111-132/58-79 78-99 Exam: Chest... See above Heart no gallop Abdomen is obese, but nontender and nondistended; bowel sounds are positive 4 Extremities with nothing to suggest acute deep venous thrombophlebitis Psychiatric oriented 3 Neurologic long-term motor function is intact Plan: Start Norvasc 5 mg daily. Check iron studies, B12 level, and folate. Repeat ABGs today. See orders. Results - Labs CBC & BMP: 04/01/17 03:36 04/01/17 03:36
[2017-04-01 10:30] LABS: % Iron Saturation 5.9 % (18-50)
[2017-04-01 10:45] LABS: Folate > 24.0 NG/ML (5.4-24.0); Vitamin B12 407 PG/ML (211-911)
[2017-04-01 10:46] LABS: ABG Base Excess 11.2 MMOL/L (-2.5-2.5); ABG HCO3 34.8 MMOL/L (20-26); ABG Oxygen Saturation 90.5 % (95-100); ABG PH 7.352 (7.35-7.45); ABG PO2 63.2 MM HG (80-95); ABG TCO2 35.8 MMOL/L (23-27); Allen Test Positive
[2017-04-01 10:49] LABS: ABG PCO2 72.2 MM HG (35-48)
--- NOTE | 2017-04-01 11:05 | Hospitalist Progress Note ---
Assessment and Plan (1) Asthma Status: Chronic Assessment and plan: 1)asthma improving. She also has burned out sarcoidosis. On singulair which seems to have helped. Her sats are in high 90s on 2L nC. She uses her CPAP at night. sputum culture grew no orgs, no pneumonia on CXR. change levaquin to oral and complete 5 days for bronchitis. afebrile for 24 hours. Hypercapnic respiratory failure- pCO2 is 72 this morning. using CPAP. 2)dysphagia for solids- needs EGD at some point. tolerating soft foods. 3)obesity 4)pHTN- norvasc started by DR Dolan. 5)DM- controlled 6)HTN- controlled Current Visit: Yes (2) Diabetes Status: Chronic Current Visit: Yes Qualifiers: Diabetes mellitus type: type 2 (3) Dysphagia Status: Acute Current Visit: Yes (4) Pulmonary hypertension Status: Chronic Current Visit: Yes (5) Sleep apnea Status: Chronic Current Visit: Yes (6) GERD (gastroesophageal reflux disease) Status: Chronic Current Visit: Yes (7) Obesity Status: Chronic Current Visit: Yes Hospitalist: Subjective Interval history: Ms Mendoza says she is feeling better and is almost ready to go home. She needs EGD ultimately to eval her dysphagia once her resp status is improved/she has recovered from her pneumonia. Exam - Constitutional Vitals: Period Temp Pulse Resp BP Sys/Zuñiga Pulse Ox Last 24 Hr 97.7 F-98.6 F 81-106 16-22 111-132/58-79 78-99 General appearance: no acute distress, morbidly obese - Eye Eye exam: Present: EOMI. Absent: scleral icterus - Respiratory Respiratory exam: Present: clear to auscultation bilaterally. Absent: wheezes - Cardiovascular Cardiovascular exam: Present: regular rate and rhythm - GI/Abdominal GI/Abdominal exam: Present: normal bowel sounds, soft. Absent: tenderness - Extremities Exam Extremities exam: Absent: edema Results - Labs CBC & BMP: 04/01/17 03:36 04/01/17 03:36 Lab Results: I have reviewed the past 24 hour labs
[2017-04-01] MEDS: amLODIPine 5 MG TABLET PO SCH (21:15)
[2017-04-02] MEDS: LEVALBUTEROL 1.25 MG/3 ML NEB RESP TX SCH ×4 (01:23→20:12)
[2017-04-02] MEDS: LEVOFLOXACIN INJ 750 MG in PREMIX 1 EACH IV SCH (10:26)
[2017-04-02 10:27] LABS: ABG Base Excess 9.7 MMOL/L (-2.5-2.5); ABG HCO3 33.4 MMOL/L (20-26); ABG Oxygen Saturation 96.1 % (95-100); ABG PH 7.338 (7.35-7.45); ABG PO2 90.8 MM HG (80-95); ABG TCO2 34.6 MMOL/L (23-27)
[2017-04-02] MEDS: ACETAMINOPHEN 325 MG TABLET PO PRN (10:27)
[2017-04-02] MEDS: buPROPion XL 150 MG TABLET PO SCH (10:27)
[2017-04-02 10:28] LABS: ABG PCO2 71.8 MM HG (35-48)
[2017-04-02] MEDS: MONTELUKAST 10 MG TABLET PO SCH (10:28)
[2017-04-02] MEDS: PANTOPRAZOLE 40 MG TABLET PO SCH (10:29)
[2017-04-02] MEDS: CARVEDILOL 6.25 MG TABLET PO SCH ×2 (10:29→20:56)
[2017-04-02] MEDS: amLODIPine 5 MG TABLET PO SCH (10:29)
[2017-04-02] MEDS: ATORVASTATIN 10 MG TABLET PO SCH (10:29)
[2017-04-02] MEDS: FUROSEMIDE 20 MG TABLET PO SCH (10:33)
[2017-04-02] MEDS: INSULIN LISPRO 100 UNIT/ML SUBCUT SCH ×4 (10:36→20:57)
--- NOTE | 2017-04-02 10:59 | Pulmonology Progress Note ---
Pulmonary - PN: Subj Interval history: This is a 46-year-old black female whom I saw in pulmonary consultation on 2016. My impressions were. 1. Lifelong history of asthma. Probably exacerbated by gastroesophageal reflux and microaspiration. 2. Solid dysphasia suspect esophageal stricture 3. Gastroesophageal reflux disease with a history strongly suggestive of nocturnal microaspiration 4. Bilateral hilar adenopathy. Possible sarcoidosis. 5. Right lower lung medial basal and basilar segment interstitial scars. Watch for infiltrate. Likely scarring from gastric aspiration 6. Hypoxemia. Etiology undetermined. 7. Chronic bilateral lower extremity edema. Look for DVT 8. High blood pressure 9. Pud-dotgfxl-wedpgcwko diabetes mellitus 10. Hyper-lipidemia 11. Morbid obesity 12. See past history 03/29/2017. Today the patient's breathing is a little better. She has asthma. She has some mainly tracheal and large airway wheezing. She is in aspirator. She also has solid dysphasia and probable esophageal stricture. She is getting a GI evaluation today. Patient has bilateral hilar adenopathy. She is not aware of any history of sarcoidosis. Angiotensin-converting enzyme has been ordered but is pending. I have stopped the patient's lisinopril. She has non- insulin-dependent diabetes mellitus, hyperlipidemia and high blood pressure. There is also a history of obstructive sleep apnea. We should continue her inhalation therapy. She has been started on Singulair. She is also on antibiotics. Today's x-ray shows either scarring or infiltrate in the medial basilar and posterior basal segments of the right lower lung. Cultures are pending. Doppler venograms of the lower extremities 04/02/2017 this patient's room air ABG on 04/01/2017 showed a pH of 7.35, PCO2 of 72.2 PO2 is 63.2 and a bicarb of 34.8. Today's ABGs on 4 L/min oxygen showed a pH of 7.338. PCO2 was 71.8. PO2 was 90.8 and bicarb is 33.4. I am going to start this patient on Diamox 250 mg p.o. twice daily will have to follow her BMP on for a while and will follow her ABGs. Patient has known obstructive sleep apnea and she uses CPAP on a nightly basis. She has had an echocardiogram this admission and showed a pulmonary artery pressure elevated at 80. We will start this patient on Norvasc 5 mg daily. I suspect we will have to increase this and that she may require additional medicine such as Revatio. Patient is also low on iron and we have begun replacement. She says she recently ate dirt but this was the first time. She denies any other history of pica. I told the patient she is going to have to begin to exercise and she will have to lose a good bit of weight in order to do well in the face of pulmonary hypertension and sleep apnea. She indicated that she understood this. Davon Winslow nurse practitioner was present. I have ordered a COPD the rehab and I have ordered dietary instruction. I have also ordered follow-up ABGs tomorrow morning on room air for 30 minutes. Physical exam. Vital signs. See below. Psychiatric. Oriented 3 Neurologic. Cranial nerves are intact. Long track motor functions intact. Face. Symmetrical. Lips and tongue are probably normal. Neck. Symmetrical. No meningismus. Lymphatics. No submandibular cervical supraclavicular or epitrochlear adenopathy. Chest. Tracheal and large airway wheeze with prolonged expiration no chest wall tenderness except over the lower sternal area Heart. No gallop Abdomen. Massively obese. Positive bowel sounds Lower extremities. Trace of edema bilaterally. The remainder of the physical exam is negative Plan. 03/29/2017 1. Discontinue lisinopril. Watch blood pressure 2. Antireflux regimen. Discussed with the patient and her female family member 3. GI consultation for possible E scope with dilatation 4. Angiotensin-converting enzyme 5. Follow-up chest x-ray in the a.m. with attention to right lower lung 6. Sputum for Gram stain culture and sensitivity #7 room air blood gas in the morning 8. Doppler venograms of lower extremity 9. Cold agglutinins 10. Proton pump 11. Thyroid function 12. See orders 04/02/2017. 1. Norvasc 5 mg daily. Consider increase in the future and consider Revatio in the future for treatment of pulmonary hypertension 2. Dietary consult for instruction on weight loss. 3. Consult pulmonary rehab. 4. Dr. King and I have discussed and reviewed the case and we have coordinated our care. Exam (Progress Note) - Constitutional Vitals: Period Temp Pulse Resp BP Sys/Zuñiga Pulse Ox Last 24 Hr 97.6 F-98.1 F 81-98 16-20 91-126/52-86 83-100 Results - Labs CBC & BMP: 04/01/17 03:36 04/01/17 03:36
[2017-04-02] MEDS: acetaZOLAMIDE 250 MG TABLET PO SCH ×2 (11:07→20:56)
[2017-04-02] MEDS: FERROUS SULFATE 325 MG TABLET PO SCH ×2 (11:07→20:56)
--- NOTE | 2017-04-02 14:45 | Physician Query Form ---
CLICK EDIT DOCUMENT TO SELECT QUERY ANSWER --> OK --> SIGN Lucero Flores RN Clinical Shipping Support Clerk W) [phone] (f) [phone] [email or web address] PROVIDERS: Make your selection(s) from the choices in EACH section by typing an "x" and enter comments in the comment section. Please use your independent medical judgment in providing your response. This request does not imply that any particular answer is desired or expected. CLINICAL INDICATORS: (Providers should not edit this section) Based on documentation of "acute CHF", [id number], Echo showed EF of 55-60%. Pt. treated with IV Lasix. Please provide further specificity regarding CHF. TYPE: ( ) Systolic (HFrEF - heart failure with reduced systolic function/EF) ( ) Diastolic (HFpEF - heart failure with preserved systolic function/EF) ( ) Combined Systolic/Diastolic ( ) Other, please specify: ( ) Clinically unable to determine ( x) The patient does NOT have CHF. To me, and I last saw her on 03/31/17, it appears that she retains fluid related to her sleep apnea and that she apparently has pneumonia. Her BNP of 106 would go against heart failure. If you want another opinion, you could ask who is seeing her as of 04/02/17, when this note was sent out. COMMENTS: PLEASE ALSO DOCUMENT RESPONSE IN PROGRESS NOTES AND/OR DISCHARGE SUMMARY Use of terms such as suspected, likely, or probable (associated with a specific diagnosis that is being evaluated, monitored, or treated as if it exists) are acceptable and can be restated in the discharge summary if not ruled out. GUMED
--- NOTE | 2017-04-02 14:58 | Hospitalist Progress Note ---
Assessment and Plan (1) Asthma Status: Chronic Assessment and plan: 1)asthma improving. She also has burned out sarcoidosis. On singulair which seems to have helped. Her sats are in high 90s on 2L nC. She uses her CPAP at night. sputum culture grew no orgs, no pneumonia on CXR. levaquin pofor 4 more days for bronchitis. afebrile for 48 hours. Hypercapnic respiratory failure- pCO2 is 72 this morning. using CPAP. 2)dysphagia for solids- needs EGD at some point. tolerating soft foods. Probably needs EGD as outpatient when respiratory status is stable. 3)obesity 4)pHTN- norvasc started by DR Dolan. 5)DM- controlled 6)HTN- controlled Current Visit: Yes (2) Diabetes Status: Chronic Current Visit: Yes Qualifiers: Diabetes mellitus type: type 2 (3) Dysphagia Status: Acute Current Visit: Yes (4) Pulmonary hypertension Status: Chronic Current Visit: Yes (5) Sleep apnea Status: Chronic Current Visit: Yes (6) GERD (gastroesophageal reflux disease) Status: Chronic Current Visit: Yes (7) Obesity Status: Chronic Current Visit: Yes Hospitalist: Subjective Interval history: Ms Mendoza is feeling ok today. She is no longer short of breath at rest. She is eating ok. Exam - Constitutional Vitals: Period Temp Pulse Resp BP Sys/Zuñiga Pulse Ox Last 24 Hr 97.6 F-98.1 F 81-98 16-20 91-126/52-86 92-100 General appearance: no acute distress, morbidly obese - Eye Eye exam: Present: EOMI. Absent: scleral icterus - Respiratory Respiratory exam: Present: clear to auscultation bilaterally (distant breath sounds) - Cardiovascular Cardiovascular exam: Present: regular rate and rhythm - GI/Abdominal GI/Abdominal exam: Present: normal bowel sounds, soft. Absent: tenderness - Extremities Exam Extremities exam: Absent: edema Results - Labs CBC & BMP: 04/01/17 03:36 04/01/17 03:36 Lab Results: I have reviewed the past 24 hour labs Specialty Discharge - Follow Up or Referrals
[2017-04-03] MEDS: LEVALBUTEROL 1.25 MG/3 ML NEB RESP TX SCH ×4 (00:39→20:37)
[2017-04-03] MEDS: acetaZOLAMIDE 250 MG TABLET PO SCH ×2 (08:29→20:23)
[2017-04-03] MEDS: FERROUS SULFATE 325 MG TABLET PO SCH ×2 (08:29→20:24)
[2017-04-03] MEDS: PANTOPRAZOLE 40 MG TABLET PO SCH (08:30)
[2017-04-03] MEDS: FUROSEMIDE 20 MG TABLET PO SCH (08:30)
[2017-04-03] MEDS: ATORVASTATIN 10 MG TABLET PO SCH (08:30)
[2017-04-03] MEDS: MONTELUKAST 10 MG TABLET PO SCH (08:30)
[2017-04-03] MEDS: CARVEDILOL 6.25 MG TABLET PO SCH ×2 (08:30→20:24)
[2017-04-03] MEDS: buPROPion XL 150 MG TABLET PO SCH (08:30)
[2017-04-03] MEDS: LEVOFLOXACIN INJ 750 MG in PREMIX 1 EACH IV SCH (08:32)
[2017-04-03] MEDS: ACETAMINOPHEN 325 MG TABLET PO PRN (08:42)
[2017-04-03] MEDS: amLODIPine 5 MG TABLET PO SCH (08:42)
[2017-04-03] MEDS: INSULIN LISPRO 100 UNIT/ML SUBCUT SCH ×4 (08:45→22:03)
--- NOTE | 2017-04-03 10:22 | Gastrointestinal Progress Note ---
Assessment and Plan (1) Abdominal pain Status: Acute Assessment and plan: 04/03-no reports abdominal pain at present. Continue solid dysphagia. Awaiting pulmonary approval to proceed with EGD if ABGs improved, tentatively tomorrow or Saturday. Plan an addendum to followed by Dr. Thompson. 04/01-abdominal pain mild in nature after meals. No nausea or vomiting. Breathing improved slightly per patient. Continue to follow until pulmonary feels safe to proceed with EGD. Plan an addendum to followed by Dr. Thompson. 03/29-6 week history of upper abdominal pain with precipitating factors including exertion and ingestion of a meal. No history of gallbladder disease in patient or family. History of reflux and dysphagia to solids. Ultrasound negative other than hepatic steatosis. Plan an addendum to followed by Dr. Thompson. Current Visit: Yes Gastroenterology - PN: Subj Interval history: CC: Abdominal pain Patient is seen awake alert family at bedside. States she had an uneventful night. Dr. Damico is at bedside and discussed case with him. He is going to recheck arterial blood gases today and if these are improved he feels that we will have patient and optimize level from her respiratory standpoint and can proceed with EGD possibly on tomorrow. She continues with solid dysphagia to foods. She feels like she is breathing a little better at this time. Denies abdominal pain, nausea vomiting. Abdomen is soft, nontender ROS: Denies shortness of breath or chest pain Exam (Progress Note) - Constitutional Vitals: Period Temp Pulse Resp BP Sys/Zuñiga Pulse Ox Last 24 Hr 96.4 F-97.9 F 80-95 16-20 107-124/56-79 93-100 - Other Additional findings: General appearance: normal weight, morbidly obese - Head Head exam: Present: normal inspection, normocephalic - Eye Eye exam: Present: other (Lids and conjunctive are unremarkable). Absent: scleral icterus - ENT ENT exam: Present: normal exam, normal oropharynx - Neck Neck exam: Present: normal inspection - Respiratory Respiratory exam: Present: clear to auscultation bilaterally. Absent: rales, rhonchi, wheezes - Cardiovascular Cardiovascular exam: Present: regular rate and rhythm. Absent: diastolic murmur , JVD, systolic murmur - GI/Abdominal GI/Abdominal exam: Present: normal bowel sounds, soft. Absent: ascites, distended, mass, organomegaly, tenderness - Extremities Exam Extremities exam: Present: normal inspection, full ROM - Back Exam Back exam: Present: normal inspection - Neurological Exam Neurological exam: Present: alert, oriented X3 - Psychiatric Psychiatric exam: Present: normal affect, normal mood - Skin Skin exam: Present: normal color, warm, dry Results - Labs CBC & BMP: 04/01/17 03:36 04/01/17 03:36 Lab Results: I have reviewed the past 24 hour labs Specialty Discharge - Follow Up or Referrals
[2017-04-03 10:28] LABS: ABG Base Excess 2.6 MMOL/L (-2.5-2.5); ABG HCO3 26.4 MMOL/L (20-26); ABG Oxygen Saturation 84.2 % (95-100); ABG PCO2 61.6 MM HG (35-48); ABG PH 7.306 (7.35-7.45); ABG PO2 54.5 MM HG (80-95); ABG TCO2 27.6 MMOL/L (23-27)
--- NOTE | 2017-04-03 10:36 | Pulmonology Progress Note ---
Pulmonary - PN: Subj Interval history: This is a 46-year-old black female whom I saw in pulmonary consultation on 2016. My impressions were. 1. Lifelong history of asthma. Probably exacerbated by gastroesophageal reflux and microaspiration. 2. Solid dysphasia suspect esophageal stricture 3. Gastroesophageal reflux disease with a history strongly suggestive of nocturnal microaspiration 4. Bilateral hilar adenopathy. Possible sarcoidosis. 5. Right lower lung medial basal and basilar segment interstitial scars. Watch for infiltrate. Likely scarring from gastric aspiration 6. Hypoxemia. Etiology undetermined. 7. Chronic bilateral lower extremity edema. Look for DVT 8. High blood pressure 9. Djg-cxypidi-dwnjkghas diabetes mellitus 10. Hyper-lipidemia 11. Morbid obesity 12. See past history 03/29/2017. Today the patient's breathing is a little better. She has asthma. She has some mainly tracheal and large airway wheezing. She is in aspirator. She also has solid dysphasia and probable esophageal stricture. She is getting a GI evaluation today. Patient has bilateral hilar adenopathy. She is not aware of any history of sarcoidosis. Angiotensin-converting enzyme has been ordered but is pending. I have stopped the patient's lisinopril. She has non- insulin-dependent diabetes mellitus, hyperlipidemia and high blood pressure. There is also a history of obstructive sleep apnea. We should continue her inhalation therapy. She has been started on Singulair. She is also on antibiotics. Today's x-ray shows either scarring or infiltrate in the medial basilar and posterior basal segments of the right lower lung. Cultures are pending. Doppler venograms of the lower extremities 04/02/2017 this patient's room air ABG on 04/01/2017 showed a pH of 7.35, PCO2 of 72.2 PO2 is 63.2 and a bicarb of 34.8. Today's ABGs on 4 L/min oxygen showed a pH of 7.338. PCO2 was 71.8. PO2 was 90.8 and bicarb is 33.4. I am going to start this patient on Diamox 250 mg p.o. twice daily will have to follow her BMP on for a while and will follow her ABGs. Patient has known obstructive sleep apnea and she uses CPAP on a nightly basis. She has had an echocardiogram this admission and showed a pulmonary artery pressure elevated at 80. We will start this patient on Norvasc 5 mg daily. I suspect we will have to increase this and that she may require additional medicine such as Revatio. Patient is also low on iron and we have begun replacement. She says she recently ate dirt but this was the first time. She denies any other history of pica. I told the patient she is going to have to begin to exercise and she will have to lose a good bit of weight in order to do well in the face of pulmonary hypertension and sleep apnea. She indicated that she understood this. Davon Winslow nurse practitioner was present. I have ordered a COPD the rehab and I have ordered dietary instruction. I have also ordered follow-up ABGs tomorrow morning on room air for 30 minutes. 04/03/2017. On room air this patient's ABGs show a PCO2 of 61 and a PO2 of 54. O2 sats 82%. This shows a big improvement in his CO2 retention. I am going to put her on 1 L nasal oxygen per minute and repeat her blood gases in 2 hours. Patient's pulmonary function test shows small airways disease with a positive response to inhaled bronchodilators. Patient was started on Singulair 10 mg daily about a week ago. I am going to add albuterol 2 mg p.o. every 8 hours. Chest is become wheeze free. Patient's been seen by dietary. She says she has not been seen by cardio pulmonary rehab Physical exam. Vital signs. See below. Psychiatric. Oriented 3 Neurologic. Cranial nerves are intact. Long track motor functions intact. Face. Symmetrical. Lips and tongue are probably normal. Neck. Symmetrical. No meningismus. Lymphatics. No submandibular cervical supraclavicular or epitrochlear adenopathy. Chest. Tracheal and large airway wheeze with prolonged expiration was present earlier during this hospitalization. The patient is now wheeze free Heart. No gallop Abdomen. Massively obese. Positive bowel sounds Lower extremities. Trace of edema bilaterally. The remainder of the physical exam is negative Plan. 03/29/2017 1. Discontinue lisinopril. Watch blood pressure 2. Antireflux regimen. Discussed with the patient and her female family member 3. GI consultation for possible E scope with dilatation 4. Angiotensin-converting enzyme 5. Follow-up chest x-ray in the a.m. with attention to right lower lung 6. Sputum for Gram stain culture and sensitivity #7 room air blood gas in the morning 8. Doppler venograms of lower extremity 9. Cold agglutinins 10. Proton pump 11. Thyroid function 12. See orders 04/02/2017. 1. Norvasc 5 mg daily. Consider increase in the future and consider Revatio in the future for treatment of pulmonary hypertension 2. Dietary consult for instruction on weight loss. 3. Consult pulmonary rehab. 4. Dr. King and I have discussed and reviewed the case and we have coordinated our care. 04/03/2017. 1. See room air blood gases. We will repeat on 1 L/min nasal oxygen which will probably test and turn up technician to be the correct dose for this patient. 2. On Singulair 10 mg daily. Add albuterol 2 mg tablets p.o. every 8 hours per 3. Patient will probably need home oxygen at 1 L/min. 4. I think from a pulmonary standpoint this patient is doing much better and could tolerated E scope with dilatation. Exam (Progress Note) - Constitutional Vitals: Period Temp Pulse Resp BP Sys/Zuñiga Pulse Ox Last 24 Hr 96.4 F-97.9 F 80-95 16-20 107-124/56-79 93-100 Results - Labs CBC & BMP: 04/01/17 03:36 04/01/17 03:36 Specialty Discharge - Follow Up or Referrals
[2017-04-03 12:46] LABS: ABG Base Excess 2.4 MMOL/L (-2.5-2.5); ABG HCO3 26.3 MMOL/L (20-26); ABG PCO2 60.4 MM HG (35-48); ABG PO2 55.3 MM HG (80-95); ABG TCO2 27.2 MMOL/L (23-27)
--- NOTE | 2017-04-03 13:50 | Hospitalist Progress Note ---
Assessment and Plan - Time spent with patient Time spent with patient: Less than 30 minutes (1) Hypertension Status: Acute Assessment and plan: 46-year-old -[place] female with history of diabetes, hypertension, sleep apnea, morbid obesity admitted by hospitalist on 03/28/2017 with acute shortness of breath and hypoxia. Dr. Dolan from pulmonary is following. Patient is also having some dysphagia to solids that Dr. Thompson is following. They are waiting on her room air blood gases to improve to optimize her level for respiratory standpoint so they can proceed with an EGD for esophageal dilation. Her blood sugars and blood pressures are under good control. She is satting today at 91% on 0.[address] Dolan is adding albuterol to patient's regimen. She is feeling much better and is not wheezing. Dr. Betancurtt to see and examined patient and further recommendations to follow. Current Visit: Yes (2) Diabetes Status: Chronic Current Visit: Yes Qualifiers: Diabetes mellitus type: type 2 (3) Dysphagia Status: Acute Current Visit: Yes (4) Pulmonary hypertension Status: Chronic Current Visit: Yes (5) Asthma Status: Chronic Current Visit: Yes (6) Sleep apnea Status: Chronic Current Visit: Yes (7) GERD (gastroesophageal reflux disease) Status: Chronic Current Visit: Yes (8) Obesity Status: Chronic Current Visit: Yes Hospitalist: Subjective Interval history: Patient states she feels a little better this morning. She is sitting up on the edge of the bed eating lunch and does not appear to be short of breath. She states they came in to draw her blood for ABG to see if she can have her EGD for esophageal dilation in the morning. Exam - Constitutional Vitals: Period Temp Pulse Resp BP Sys/Zuñiga Pulse Ox Last 24 Hr 96.4 F-97.9 F 80-97 16-20 95-124/56-75 91-100 Exam: 46-year-old obese -[place] female, no acute distress, alert and oriented Chest clear with distant breath sounds CV regular rate and rhythm Abdomen obese nontender Extremities no edema Results - Labs CBC & BMP: 04/01/17 03:36 04/01/17 03:36 Lab Results: I have reviewed the past 24 hour labs Specialty Discharge - Follow Up or Referrals
[2017-04-03] MEDS: ALBUTEROL 0.4 MG/ML 30 ML/BOTTLE PO SCH ×3 (14:14→22:40)
[2017-04-03 17:18] LABS: ABG Base Excess 2.7 MMOL/L (-2.5-2.5); ABG HCO3 26.7 MMOL/L (20-26); ABG Oxygen Saturation 88.4 % (95-100); ABG PCO2 65.5 MM HG (35-48); ABG PH 7.289 (7.35-7.45); ABG PO2 61.8 MM HG (80-95); ABG TCO2 28.3 MMOL/L (23-27)
[2017-04-04] MEDS: LEVALBUTEROL 1.25 MG/3 ML NEB RESP TX SCH ×3 (01:07→13:34)
[2017-04-04] MEDS: ALBUTEROL 0.4 MG/ML 30 ML/BOTTLE PO SCH ×3 (05:34→15:40)
[2017-04-04] MEDS: LEVOFLOXACIN INJ 750 MG in PREMIX 1 EACH IV SCH (08:45)
[2017-04-04 08:58] LABS: Allen Test Positive
[2017-04-04 08:59] LABS: ABG Base Excess 1.7 MMOL/L (-2.5-2.5); ABG HCO3 25.8 MMOL/L (20-26); ABG Oxygen Saturation 89.4 % (95-100); ABG PCO2 65.6 MM HG (35-48); ABG PH 7.276 (7.35-7.45); ABG PO2 64.2 MM HG (80-95); ABG TCO2 27.5 MMOL/L (23-27)
[2017-04-04] MEDS: INSULIN LISPRO 100 UNIT/ML SUBCUT SCH ×3 (09:22→17:10)
--- NOTE | 2017-04-04 10:42 | Discharge Summary ---
Hospital Course - Hospital Course Hospital Course: Mrs Mendoza presented with acute on chronic hypoxic and hypercapnic respiratory failure due to asthma, possible sarcoid, OHS, QUAN, and morbid obesity. She requires home O2. She was seen by Dr Dolan who will follow up with her in the clinic. Lower extremity dopplers were negative for clot. Her ct chest was also negative for PE. Norvasc was added for pHTN, and she was seen by pulmonary rehab and the floor hand. She was seen by Dr Thompson who did EGD today and dilated a mild stricture and found lois esophagitis. She will take fluconoazole for 7 days. She was seen by cardiology for tachycardia lorraine twas sinus tach and did not require work up. Her echo showed EF 55-60%. She will follow up with Dr Dolan, DR Thompson and her PCP. - Time spent with patient Time with patient DS: Greater than 30 minutes (exam, documentation, medicine reconciliation, coordination of care.) Diagnosis - Discharge Diagnosis (1) Asthma Status: Chronic (2) Diabetes Status: Chronic (3) Dysphagia Status: Resolved (4) Pulmonary hypertension Status: Chronic (5) Sleep apnea Status: Chronic (6) GERD (gastroesophageal reflux disease) Status: Chronic (7) Obesity Status: Chronic Specialty Discharge - Follow Up or Referrals Follow up with: Your, PCP [Other] - 1 Week Gabriel Thompson MD [Physician] - (per his recommendations) Gabriel Dolan MD [Physician] - 04/17/17 1:00 pm - Speciality Discharge Instructions Internal Medicine Instructions: home O2 on 1-2 liters [place] Discharge Plan - Discharge Data Disposition: Disch To Home/Self Care Condition at Discharge: Stable Discharge Diet: advance to your usual diet Activity: resume usual activities as tolerated, wear oxygen at all times - Discharge Medications New acetaZOLAMIDE TAB [Diamox Tab] 250 mg PO BID #60 tablet amLODIPine [Norvasc] 5 mg PO DAILY #30 tablet Carvedilol [Coreg] 6.25 mg PO BID #60 tablet Levalbuterol Neb [Xopenex Neb] 1.25 mg INH Q6H #120 vial Montelukast Tab [Singulair Tab] 10 mg PO DAILY #30 tablet Albuterol Liquid [Proventil Liquid] 1 mg PO Q8HR #90 bottle Ferrous Sulfate Tab [Feosol Original Tab] 325 mg PO BID tablet Continue Furosemide Tab [Lasix Tab] 10 mg PO DAILY Atorvastatin [Lipitor] 10 mg PO DAILY Metformin HCl [Metformin HCl ER] 500 mg PO DAILY Cholecalciferol (Vitamin D3) [Vitamin D3] 2,000 unit PO DAILY buPROPion XL [Wellbutrin Xl] 150 mg PO DAILY Omeprazole 40 mg PO DAILY Discontinued Lisinopril/Hydrochlorothiazide [Lisinopril-Hctz 10-12.5 mg Tab] 1 each PO DAILY - Follow Up or Referral Follow Up: Your, PCP [Other] - 1 Week Gabriel Thompson MD [Physician] - (per his recommendations) Gabriel Dolan MD [Physician] - 04/17/17 1:00 pm - Forms/Instructions Instructions: Chronic Obstructive Pulmonary Disease (GEN) Exam - Constitutional Vitals: Period Temp Pulse Resp BP Sys/Zuñiga Pulse Ox Last 24 Hr 97.1 F-97.7 F 81-100 18-20 95-134/59-75 91-100 General appearance: no acute distress, morbidly obese - Head Head exam: Present: normocephalic, atraumatic - Eye Eye exam: Present: EOMI. Absent: scleral icterus - Respiratory Respiratory exam: Present: clear to auscultation bilaterally - Cardiovascular Cardiovascular exam: Present: regular rate and rhythm - GI/Abdominal GI/Abdominal exam: Present: normal bowel sounds, soft. Absent: tenderness - Extremities Exam Extremities exam: Absent: edema Discharge Results Labs on day of discharge: Labs from last 24 hours 04/04/17 04/04/17 04/04/17 08:50 07:53 07:32 ABG pH 7.276 L ABG pCO2 65.6 H ABG pO2 64.2 L ABG HCO3 25.8 ABG Total CO2 27.5 H ABG O2 Saturation 89.4 L ABG Base Excess 1.7 FiO2 36.00 POC Glucose 98 Serum , Qual Negative 04/03/17 04/03/17 04/03/17 20:21 16:01 15:30 ABG pH 7.289 L ABG pCO2 65.5 H ABG pO2 61.8 L ABG HCO3 26.7 H ABG Total CO2 28.3 H ABG O2 Saturation 88.4 L ABG Base Excess 2.7 H FiO2 POC Glucose 107 H 103 Serum , Qual 04/03/17 04/03/17 12:00 11:31 ABG pH 7.310 L ABG pCO2 60.4 H ABG pO2 55.3 L ABG HCO3 26.3 H ABG Total CO2 27.2 H ABG O2 Saturation 85.0 L ABG Base Excess 2.4 FiO2 POC Glucose 88 Serum , Qual DS: Provider Date of admission: 03/28/17 11:43 Primary care physician: Shani Jackson Attending physician on admission: Amalia Lugo MD Consults: 03/28/17 13:52 Consult to [facility], Educator [CONS] Routine Reason for Upper Extremity Surgeon: Diabetes Education Diet 03/28/17 14:58 Consult to Physician [CONS] Routine Comment: SOB, hypoxia Consulting Provider: Gabriel Dolan Consult to Specialist Group: Pulmonology When should Consulting Provider be notified: Now Person Notified: rama Date Notified: 03/28/17 Time Notified: 15:35 03/28/17 16:20 Consult to Physician [CONS] Routine Comment: Consulting Provider: Cardiology - [facility] When should Consulting Provider be notified: In am Person Notified: MICHELE Date Notified: 03/28/17 Time Notified: 16:24 Consult Notification Comment: Re-C/S with Kush 8:15 03/28/17 19:51 Consult to Physician [CONS] Routine Comment: Asthma. Solid dysphasia. Aspiration. Needs E sc Consulting Provider: Consult to Specialist Group: Gastroenterology When should Consulting Provider be notified: In am 04/02/17 10:21 Consult to Dietitian [CONS] Routine Reason for Dietitian: Diet Recommendations Diet Instruction Consult Comment: Weight loss Consult to Pulmonary Rehabilitation [CONS] Routine Reason for Pulmonary Rehabilitation: Other Consult Comment: Asthma, pulmonary HTN, QUAN Discharging clinician: Brianna Taylor MD
--- NOTE | 2017-04-04 10:46 | Pulmonology Progress Note ---
Pulmonary - PN: Subj Interval history: This is a 46-year-old black female whom I saw in pulmonary consultation on 2016. My impressions were. 1. Lifelong history of asthma. Probably exacerbated by gastroesophageal reflux and microaspiration. 2. Solid dysphasia suspect esophageal stricture 3. Gastroesophageal reflux disease with a history strongly suggestive of nocturnal microaspiration 4. Bilateral hilar adenopathy. Possible sarcoidosis. 5. Right lower lung medial basal and basilar segment interstitial scars. Watch for infiltrate. Likely scarring from gastric aspiration 6. Hypoxemia. Etiology undetermined. 7. Chronic bilateral lower extremity edema. Look for DVT 8. High blood pressure 9. Pgn-lnxiqyf-epggeyqko diabetes mellitus 10. Hyper-lipidemia 11. Morbid obesity 12. See past history 03/29/2017. Today the patient's breathing is a little better. She has asthma. She has some mainly tracheal and large airway wheezing. She is in aspirator. She also has solid dysphasia and probable esophageal stricture. She is getting a GI evaluation today. Patient has bilateral hilar adenopathy. She is not aware of any history of sarcoidosis. Angiotensin-converting enzyme has been ordered but is pending. I have stopped the patient's lisinopril. She has non- insulin-dependent diabetes mellitus, hyperlipidemia and high blood pressure. There is also a history of obstructive sleep apnea. We should continue her inhalation therapy. She has been started on Singulair. She is also on antibiotics. Today's x-ray shows either scarring or infiltrate in the medial basilar and posterior basal segments of the right lower lung. Cultures are pending. Doppler venograms of the lower extremities 04/02/2017 this patient's room air ABG on 04/01/2017 showed a pH of 7.35, PCO2 of 72.2 PO2 is 63.2 and a bicarb of 34.8. Today's ABGs on 4 L/min oxygen showed a pH of 7.338. PCO2 was 71.8. PO2 was 90.8 and bicarb is 33.4. I am going to start this patient on Diamox 250 mg p.o. twice daily will have to follow her BMP on for a while and will follow her ABGs. Patient has known obstructive sleep apnea and she uses CPAP on a nightly basis. She has had an echocardiogram this admission and showed a pulmonary artery pressure elevated at 80. We will start this patient on Norvasc 5 mg daily. I suspect we will have to increase this and that she may require additional medicine such as Revatio. Patient is also low on iron and we have begun replacement. She says she recently ate dirt but this was the first time. She denies any other history of pica. I told the patient she is going to have to begin to exercise and she will have to lose a good bit of weight in order to do well in the face of pulmonary hypertension and sleep apnea. She indicated that she understood this. Davon Winslow nurse practitioner was present. I have ordered a COPD the rehab and I have ordered dietary instruction. I have also ordered follow-up ABGs tomorrow morning on room air for 30 minutes. 04/03/2017. On room air this patient's ABGs show a PCO2 of 61 and a PO2 of 54. O2 sats 82%. This shows a big improvement in his CO2 retention. I am going to put her on 1 L nasal oxygen per minute and repeat her blood gases in 2 hours. Patient's pulmonary function test shows small airways disease with a positive response to inhaled bronchodilators. Patient was started on Singulair 10 mg daily about a week ago. I am going to add albuterol 2 mg p.o. every 8 hours. Chest is become wheeze free. Patient's been seen by dietary. She says she has not been seen by cardio pulmonary rehab 04/04/2017. On 04/03/2017 we checked several blood gases on the patient. On room air her pH was 7.306, PCO2 is 61.6, PO2 was 54.5 and bicarb was 26.4. A 1 L/min oxygen the pH was 7.31. PCO2 is 60.4, PO2 was 55.3 and bicarb was 26.3. On 2 L/min nasal oxygen the pH was 7.289, PCO2 was 65.5, PO2 61.8 bicarb was 26.7. 04/04/2017 ABGs on 2 L/min nasal oxygen showed a pH of 7.276, PCO2 of 65.6 and PaO2 is 64.2 with a bicarb of 25.8. Safest range for her home oxygen will be 1-2 L/min. Labs been reviewed and medicines have been reviewed. Patient's for knee scope with possible esophageal dilatation later today. Physical exam. Vital signs. See below. Psychiatric. Oriented 3 Neurologic. Cranial nerves are intact. Long track motor functions intact. Face. Symmetrical. Lips and tongue are probably normal. Neck. Symmetrical. No meningismus. Lymphatics. No submandibular cervical supraclavicular or epitrochlear adenopathy. Chest. Tracheal and large airway wheeze with prolonged expiration was present earlier during this hospitalization. The patient is now wheeze free Heart. No gallop Abdomen. Massively obese. Positive bowel sounds Lower extremities. Trace of edema bilaterally. The remainder of the physical exam is negative Plan. 03/29/2017 1. Discontinue lisinopril. Watch blood pressure 2. Antireflux regimen. Discussed with the patient and her female family member 3. GI consultation for possible E scope with dilatation 4. Angiotensin-converting enzyme 5. Follow-up chest x-ray in the a.m. with attention to right lower lung 6. Sputum for Gram stain culture and sensitivity #7 room air blood gas in the morning 8. Doppler venograms of lower extremity 9. Cold agglutinins 10. Proton pump 11. Thyroid function 12. See orders 04/02/2017. 1. Norvasc 5 mg daily. Consider increase in the future and consider Revatio in the future for treatment of pulmonary hypertension 2. Dietary consult for instruction on weight loss. 3. Consult pulmonary rehab. 4. Dr. King and I have discussed and reviewed the case and we have coordinated our care. 04/03/2017. 1. See room air blood gases. 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 2. On Singulair 10 mg daily. Add albuterol 2 mg tablets p.o. every 8 hours per 3. Patient will probably need home oxygen at 1 L/min. 4. I think from a pulmonary standpoint this patient is doing much better and could tolerated E scope with dilatation. 04/04/2017. 1. See today's note above. Exam (Progress Note) - Constitutional Vitals: Period Temp Pulse Resp BP Sys/Zuñiga Pulse Ox Last 24 Hr 97.1 F-97.7 F 81-100 18-20 95-134/59-75 91-100 Results - Labs CBC & BMP: 04/01/17 03:36 04/01/17 03:36 Specialty Discharge - Follow Up or Referrals Follow up with: Your, PCP [Other] - 1 Week Gabriel Thompson MD [Physician] - (per his recommendations) Gabriel Dolan MD [Physician] - 2 Weeks
--- NOTE | 2017-04-04 13:56 | History and Physical Update ---
History and Physical Update - History and Physical H&P was reviewed, the patient examined and there: are no changes in the patients condition since last H&P was completed. - Physical Exam Mental Status: alert and oriented Heart: regular rate and rhythm Lung: clear to auscultation Abdomen: within normal limits Vitals: within normal limits
--- NOTE | 2017-04-04 13:59 | Operative Note ---
Date of procedure: 04/04/17 Pre-op diagnosis: Dysphagia Procedure: Procedure: Esophagogastroduodenoscopy with biopsies gastric ulcer and bougie dilation esophagus Brief clinical abstract: 46-year-old female with asthma complains of dysphagia to solids. Indication for procedure: Dysphagia Endoscopic findings:[After informed consent was obtained, the patient was placed in the left lateral decubitus position. The gastroscope was inserted in the upper esophagus under direct vision with no resistance encountered. Esophageal mucosa was examined with a few scattered areas of whitish exudate in the upper and midesophagus consistent with candidiasis. At the squamocolumnar junction was a mildly obstructive fibrous appearing stricture consistent with reflux etiology. She had a small 2 cm long hiatal hernia just distal to this. The endoscope was advanced in the stomach which was carefully examined including retroflexed view of the cardia and fundus. There was an approximate 1 cm area of superficial ulceration in the mid body of the stomach along the greater curve with surrounding subepithelial hemorrhage. Several biopsies were obtained from this for pathologic examination. Remainder the stomach appeared normal. The pyloric channel, duodenal bulb, second and third portion of the duodenum appeared normal. The endoscope was withdrawn and Naqvi dilator size 54 Polish was inserted in the upper esophagus and advanced beyond the level of the GE junction with mild resistance encountered. No blood was noted on the dilator afterwards and she had no chest pain. She appeared to tolerate the procedure well. Impression: #1 mild esophageal candidiasis #2 mild distal esophageal stricture secondary to GERD-status post bougie dilation #3 hiatal hernia #4 small gastric ulcer Recommendations: Fluconazole therapy for 7 days. Daily PPI therapy for reflux and ulcer. Follow-up pathology and treat for Helicobacter infection if positive. Anesthesia: MAC Surgeon / Physician: Gabriel Thompson Estimated blood loss: minimal Specimens: other (Gastric ulcer) Condition: stable Disposition: post procedure unit Results - Labs CBC & BMP: 04/01/17 03:36 04/01/17 03:36 Discharge Plan - Discharge Data Disposition: Disch To Home/Self Care - Discharge Medications New acetaZOLAMIDE TAB [Diamox Tab] 250 mg PO BID #60 tablet amLODIPine [Norvasc] 5 mg PO DAILY #30 tablet Carvedilol [Coreg] 6.25 mg PO BID #60 tablet Levalbuterol Neb [Xopenex Neb] 1.25 mg INH Q6H #120 vial Montelukast Tab [Singulair Tab] 10 mg PO DAILY #30 tablet Albuterol Liquid [Proventil Liquid] 1 mg PO Q8HR #90 bottle Ferrous Sulfate Tab [Feosol Original Tab] 325 mg PO BID tablet Continue Furosemide Tab [Lasix Tab] 10 mg PO DAILY Atorvastatin [Lipitor] 10 mg PO DAILY Metformin HCl [Metformin HCl ER] 500 mg PO DAILY Cholecalciferol (Vitamin D3) [Vitamin D3] 2,000 unit PO DAILY buPROPion XL [Wellbutrin Xl] 150 mg PO DAILY Omeprazole 40 mg PO DAILY Discontinued Lisinopril/Hydrochlorothiazide [Lisinopril-Hctz 10-12.5 mg Tab] 1 each PO DAILY - Follow Up or Referral Follow Up: Your, PCP [Other] - 1 Week Gabriel Thompson MD [Physician] - (per his recommendations) Gabriel Dolan MD [Physician] - 04/17/17 1:00 pm - Forms/Instructions Instructions: Chronic Obstructive Pulmonary Disease (GEN)
[2017-04-04] MEDS ORDERED: FLUCONAZOLE 100 MG TABLET PO SCH (14:00)
--- NOTE | 2017-04-04 14:06 | Anesthesia Post-Op ---
Anesthesia Post OP - Post Ansesthetic Evaluation Patient seen in post op: Yes Resp: within normal limits CV: within normal limits Mental: within normal limits Temp: within normal limits [id number]: within normal limits Nausea and Vomiting: within normal limits Pain: within normal limits
[2017-04-04] MEDS: CARVEDILOL 6.25 MG TABLET PO SCH (15:32)
[2017-04-04] MEDS: FERROUS SULFATE 325 MG TABLET PO SCH (15:32)
[2017-04-04] MEDS: FUROSEMIDE 20 MG TABLET PO SCH (15:32)
[2017-04-04] MEDS: ATORVASTATIN 10 MG TABLET PO SCH (15:32)
[2017-04-04] MEDS: acetaZOLAMIDE 250 MG TABLET PO SCH (15:32)
[2017-04-04] MEDS: PANTOPRAZOLE 40 MG TABLET PO SCH (15:33)
[2017-04-04] MEDS: buPROPion XL 150 MG TABLET PO SCH (15:33)
[2017-04-04] MEDS: MONTELUKAST 10 MG TABLET PO SCH (15:33)
[2017-04-04] MEDS: amLODIPine 5 MG TABLET PO SCH (15:33)
[2017-04-04 16:07] VITALS: BP 120/87
--- NOTE | 2017-04-11 10:17 | Pathology Report from [facility] ---
[facility] ACCESSION # : [id number] PATIENT NAME : Jessica Rodriguez ORDERING DR : CECILLE HART MD CLINICAL HX: N/V - Chest pain POST-OP DX: Gastric ulcer SPECIMEN INFO: Gastric GROSS DESCRIPTION: The specimen is received in formalin labeled with the patients name and consists of a 0.6 x 0.4 cm aggregate of blas tissue. Submitted in one cassette. DIAGNOSIS FOR JESSICA RODRIGUEZ: GASTRIC BIOPSY: Chronic superficial gastritis with focal erosion. H. pylori not seen on special stain. COLLECTED DATE: 04/04/2017 [facility] REPORT DATE: 04/05/2017 ELECTRONICALLY SIGNED BY: Nelson Lee M.D. 04/05/2017 - 9:34:15 [email or web address]
== END 2017-04-04 17:53 | disposition home or self-care (01) | DRG 193 ==
LOC: N.ED 09:23 → SUATTDRO 11:43 → N.EDINP 11:43 → N.2E 12:28 → N.TELEN 16:53
PROVIDERS: ADMIT Internal Medicine; ATTEND Internal Medicine

== ENCOUNTER 2022-06-26 11:34 | Inpatient (IN) ==
[2022-06-26] MEDS ORDERED: cefTRIAXone 1,000 MG in SODIUM CHLORIDE 0.9% 100 ML IV STA (13:28)
[2022-06-26 13:53] LABS: Albumin 3.1 G/DL (3.4-5.0); Bilirubin,Total 1.2 MG/DL (0.20-1.00); Calcium 9.9 MG/DL (8.5-10.1); Osmolality,Calculated 267.1 MOS/KG (273-304); Potassium 3.6 MMOL/L (3.5-5.1); Total Protein 8.8 G/DL (6.4-8.2)
[2022-06-26 13:55] LABS: Basophils # 0.1 10*3/uL (0.0-0.2); Basophils % 0.2 % (0.0-0.8); Bilirubin,Urine Negative (Negative); Blood, Urine Negative (Negative); Glucose,Urine (UA) >=1000 mg/dL (Negative); Hematocrit 42.5 VOL% (35.7-47.0); Hemoglobin 12.8 GM/DL (12.0-16.0); Immature Granulocytes % 0.8 %; Immature Granulocytes Absolute 0.21 #; Ketones,Urine 40 mg/dL (Negative); Lymphocytes # 2.1 10*3/uL (1.4-4.0); Lymphocytes % 8.3 % (21.3-54.2); Mean Corpuscular HGB Conc 30.1 GM/DL (32-36); Mean Corpuscular Volume 76.2 FL (87-102); Mean Platelet Volume 9.2 FL (9.6-12.0); Monocytes # 2.2 10*3/uL (0.11-0.8); Monocytes % 8.6 % (1.7-12.7); Neutrophils % 82.1 % (38.7-73.9); Nitrite,Urine Negative (Negative); Platelet Count 523 T/CUMM (130-400); Protein,Urine Negative (Negative); Red Blood Count 5.58 MC/CUMM (3.8-5.5); Red Cell Distribution Width 23.5 % (9.3-17.3); Urine Appearance Clear (Clear); Urine Color Yellow (Yellow); Urine Specific Gravity 1.015 (1.001-1.035); Urine pH 5.5 (4.5-8.0); White Blood Count 25.1 T/CUMM (4-12)
[2022-06-26 14:14] LABS: Band Neutrophils 4 % (0-10); Hypochromia 2+; Lymphocytes 5 % (20-55); Microcytosis 1+; Platelet Estimate Increased; Total Cells Counted 100
[2022-06-26 14:15] LABS: Mucus,Urine Occasional /LPF (Occasional); Squamous Epithelial Cell,Urine Occasional /HPF (0-10)
[2022-06-26] MEDS ORDERED: PIPERACILLIN/TAZOBACTAM 3,375 MG in SODIUM CHLORIDE 0.9% 100 ML IV STA (14:35)
[2022-06-26] MEDS ORDERED: HYDROmorphone 1 MG/1 ML SYRINGE IV STA (15:08)
[2022-06-26] MEDS ORDERED: ONDANSETRON 4 MG/2 ML VIAL IV STA (15:08)
[2022-06-26] MEDS ORDERED: BISACODYL 5 MG TABLET PO PRN (15:58)
[2022-06-26] MEDS ORDERED: ONDANSETRON 4 MG/2 ML VIAL IV PRN (15:58)
[2022-06-26] MEDS ORDERED: KETOROLAC 30 MG/1 ML VIAL IV PRN (16:41)
[2022-06-26] MEDS: ALBUTEROL/IPRATROPIUM 3 ML NEB RESP TX PRN (17:47)
[2022-06-26] MEDS: LACTATED RINGERS 1,000 ML IV SCH (17:49)
[2022-06-26] MEDS: ACETAMINOPHEN 325 MG TABLET PO PRN (18:20)
[2022-06-26] MEDS: PIPERACILLIN/TAZOBACTAM 3,375 MG in SODIUM CHLORIDE 0.9% 100 ML IV SCH (20:23)
[2022-06-27] MEDS: PIPERACILLIN/TAZOBACTAM 3,375 MG in SODIUM CHLORIDE 0.9% 100 ML IV SCH ×3 (05:19→20:32)
[2022-06-27 06:06] LABS: Basophils # 0.1 10*3/uL (0.0-0.2); Basophils % 0.3 % (0.0-0.8); Eosinophils % 0.1 % (0.00-10.9); Hematocrit 36.4 VOL% (35.7-47.0); Immature Granulocytes % 0.8 %; Immature Granulocytes Absolute 0.22 #; Lymphocytes # 2.5 10*3/uL (1.4-4.0); Lymphocytes % 9.4 % (21.3-54.2); Mean Corpuscular HGB Conc 30.2 GM/DL (32-36); Mean Corpuscular Volume 76.5 FL (87-102); Mean Platelet Volume 9.4 FL (9.6-12.0); Monocytes # 2.6 10*3/uL (0.11-0.8); Monocytes % 9.7 % (1.7-12.7); Neutrophils % 79.7 % (38.7-73.9); Platelet Count 439 T/CUMM (130-400); Red Blood Count 4.76 MC/CUMM (3.8-5.5); Red Cell Distribution Width 22.8 % (9.3-17.3)
[2022-06-27 06:22] LABS: Albumin 2.7 G/DL (3.4-5.0); Bilirubin,Total 1.8 MG/DL (0.20-1.00); Calcium 9.2 MG/DL (8.5-10.1); Osmolality,Calculated 275.7 MOS/KG (273-304); Potassium 3.6 MMOL/L (3.5-5.1); Total Protein 7.4 G/DL (6.4-8.2)
[2022-06-27 06:39] LABS: Lymphocytes 13 % (20-55); Total Cells Counted 100
[2022-06-27 06:40] LABS: Hypochromia 1+; Microcytosis 1+; Polychromasia Slight; Target Cells Slight
[2022-06-27] MEDS ORDERED: INDOCYANINE GREEN 25 MG VIAL IV ONE (07:00)
[2022-06-27] MEDS: LACTATED RINGERS 1,000 ML IV SCH ×3 (08:00→15:49)
[2022-06-27] MEDS: PANTOPRAZOLE 40 MG TABLET PO SCH (08:00)
[2022-06-27] MEDS ORDERED: FLUTICASONE 50 MCG NASAL SPRAY 16 GM BOTTLE BOTH NARES PRN (10:10)
[2022-06-27] MEDS ORDERED: BUPIVACAINE MPF 0.25% 10 ML VIAL ONE (10:11)
[2022-06-27] MEDS ORDERED: TISSUE ADHESIVE 1 EACH APPLICATOR TOP ONE (10:11)
[2022-06-27] MEDS ORDERED: LIDOCAINE 1%/EPI INJ 20 ML VIAL ONE (10:11)
[2022-06-27] MEDS ORDERED: LACTATED RINGERS 1,000 ML IV SCH (11:00)
[2022-06-27] MEDS ORDERED: METOCLOPRAMIDE 10 MG/2 ML VIAL ONE (11:36)
[2022-06-27] MEDS ORDERED: FAMOTIDINE 20 MG/2 ML VIAL IV ONE (11:36)
[2022-06-27] MEDS ORDERED: ONDANSETRON 4 MG/2 ML VIAL ONE (11:42)
[2022-06-27] MEDS ORDERED: SEVOFLURANE 1 UNIT/15 MINUTE INH ONE (11:42)
[2022-06-27] MEDS ORDERED: fentaNYL 100 MCG/2 ML VIAL ONE (11:42)
[2022-06-27] MEDS ORDERED: MIDAZOLAM 2 MG/2 ML VIAL ONE (11:42)
[2022-06-27] MEDS ORDERED: ROCURONIUM 50 MG/5 ML VIAL IV ONE (11:42)
[2022-06-27] MEDS ORDERED: propofoL 200 MG/20 ML VIAL IV ONE (11:42)
[2022-06-27] MEDS ORDERED: SUCCINYLCHOLINE 200 MG/10 ML VIAL ONE (11:42)
[2022-06-27] MEDS ORDERED: LIDOCAINE 2% 5 ML VIAL ONE (11:42)
[2022-06-27] MEDS: ALBUTEROL/IPRATROPIUM 3 ML NEB RESP TX PRN (11:47)
[2022-06-27] MEDS ORDERED: VASOPRESSIN 20 UNITS/ML VIAL ONE (12:28)
[2022-06-27] MEDS ORDERED: PHENYLEPHRINE 1 MG/10 ML SYRINGE IV ONE (13:03)
[2022-06-27] MEDS ORDERED: LACTATED RINGERS 1,000 ML IV ONE (13:22)
[2022-06-27] MEDS ORDERED: SUGAMMADEX 200 MG/2 ML VIAL IV ONE (14:09)
[2022-06-27] MEDS ORDERED: GLUCAGON 1 MG VIAL IM PRN (14:23)
[2022-06-27] MEDS ORDERED: DEXTROSE 10% 250 ML BAG IV PRN (14:23)
[2022-06-27] MEDS ORDERED: HYDROmorphone 1 MG/1 ML SYRINGE IV PRN (15:06)
[2022-06-27] MEDS ORDERED: ONDANSETRON 4 MG/2 ML VIAL IV PRN (15:06)
[2022-06-27] MEDS: ALBUTEROL 0.4 MG/ML 30 ML/BOTTLE PO SCH ×2 (15:48→21:00)
[2022-06-27] MEDS: carvediloL 6.25 MG TABLET PO SCH (16:02)
[2022-06-27] MEDS: POTASSIUM CHLORIDE 10 MEQ TABLET PO SCH (16:02)
[2022-06-27] MEDS: HYDROmorphone 1 MG/1 ML SYRINGE IV PRN (17:45)
[2022-06-27] MEDS: acetaZOLAMIDE 250 MG TABLET PO SCH (20:32)
[2022-06-28] MEDS: HYDROmorphone 1 MG/1 ML SYRINGE IV PRN ×3 (03:47→12:24)
[2022-06-28] MEDS: PIPERACILLIN/TAZOBACTAM 3,375 MG in SODIUM CHLORIDE 0.9% 100 ML IV SCH ×4 (04:23→20:55)
[2022-06-28] MEDS: ALBUTEROL 0.4 MG/ML 30 ML/BOTTLE PO SCH ×3 (05:12→21:28)
[2022-06-28 07:17] LABS: Basophils # 0.1 10*3/uL (0.0-0.2); Basophils % 0.2 % (0.0-0.8); Eosinophils # 0.2 10*3/uL (0.0-0.87); Eosinophils % 0.6 % (0.00-10.9); Hematocrit 36.8 VOL% (35.7-47.0); Immature Granulocytes % 1.1 %; Immature Granulocytes Absolute 0.34 #; Lymphocytes # 1.4 10*3/uL (1.4-4.0); Lymphocytes % 4.3 % (21.3-54.2); Mean Corpuscular HGB Conc 29.9 GM/DL (32-36); Mean Corpuscular Volume 77.6 FL (87-102); Mean Platelet Volume 9.8 FL (9.6-12.0); Monocytes # 2.9 10*3/uL (0.11-0.8); Monocytes % 9.1 % (1.7-12.7); Neutrophils % 84.7 % (38.7-73.9); Platelet Count 452 T/CUMM (130-400); Red Blood Count 4.74 MC/CUMM (3.8-5.5); White Blood Count 32.3 T/CUMM (4-12)
[2022-06-28 07:38] LABS: Albumin 2.3 G/DL (3.4-5.0); Bilirubin,Total 1.2 MG/DL (0.20-1.00); Calcium 8.6 MG/DL (8.5-10.1); Potassium 4.2 MMOL/L (3.5-5.1); Total Protein 7.4 G/DL (6.4-8.2)
[2022-06-28 07:42] LABS: Eosinophils 1 % (0-10); Hypochromia Slight; Lymphocytes 6 % (20-55); Microcytosis Slight; Platelet Estimate Adequate; Total Cells Counted 100
[2022-06-28] MEDS: LACTATED RINGERS 1,000 ML IV SCH ×2 (08:19→16:16)
[2022-06-28] MEDS: POTASSIUM CHLORIDE 10 MEQ TABLET PO SCH ×2 (08:22→17:08)
[2022-06-28] MEDS: carvediloL 6.25 MG TABLET PO SCH ×2 (08:22→17:08)
[2022-06-28] MEDS: acetaZOLAMIDE 250 MG TABLET PO SCH ×2 (08:22→20:37)
[2022-06-28] MEDS: MONTELUKAST 10 MG TABLET PO SCH (08:22)
[2022-06-28] MEDS: LOSARTAN 50 MG TABLET PO SCH (08:22)
[2022-06-28] MEDS: amLODIPine 10 MG TABLET PO SCH (08:22)
[2022-06-28] MEDS: PANTOPRAZOLE 40 MG TABLET PO SCH (08:22)
[2022-06-28] MEDS ORDERED: LACTATED RINGERS 1,000 ML IV ONE (09:18)
[2022-06-28] MEDS ORDERED: SODIUM CHLORIDE 0.9% 1,000 ML IV ONE (15:12)
[2022-06-28] MEDS ORDERED: POTASSIUM CHLORIDE RIDER 10 MEQ/100 ML PREMIX IV PRN (15:20)
[2022-06-28] MEDS ORDERED: MAGNESIUM SULF RIDER 4 GM/100 ML PREMIX IV PRN (15:20)
[2022-06-28] MEDS ORDERED: POTASSIUM CHLORIDE 20 MEQ TABLET PO PRN (15:20)
[2022-06-28] MEDS ORDERED: MAGNESIUM SULF RIDER 2 GM/50 ML PREMIX IV PRN (15:20)
[2022-06-28] MEDS: INSULIN LISPRO 100 UNIT/ML SUBCUT SCH ×2 (17:08→20:37)
[2022-06-28 18:20] LABS: Calcium 9.1 MG/DL (8.5-10.1); Osmolality,Calculated 278.7 MOS/KG (273-304); Potassium 4.3 MMOL/L (3.5-5.1)
[2022-06-28] MEDS: APIXABAN 5 MG TABLET PO SCH (20:37)
[2022-06-28] MEDS: ACETAMINOPHEN 325 MG TABLET PO PRN (23:00)
[2022-06-29] MEDS ORDERED: NOREPINEPHRINE 4 MG/4 ML VIAL IV ONE (03:55)
[2022-06-29] MEDS: NOREPINEPHRINE 8 MG in SODIUM CHLORIDE 0.9% 242 ML IV PRN ×3 (03:59→13:13)
[2022-06-29 04:07] LABS: Basophils # 0.1 10*3/uL (0.0-0.2); Basophils % 0.3 % (0.0-0.8); Eosinophils # 0.6 10*3/uL (0.0-0.87); Eosinophils % 2.3 % (0.00-10.9); Hematocrit 36.3 VOL% (35.7-47.0); Hemoglobin 10.8 GM/DL (12.0-16.0); Immature Granulocytes % 1.2 %; Immature Granulocytes Absolute 0.33 #; Lymphocytes # 2.6 10*3/uL (1.4-4.0); Lymphocytes % 9.4 % (21.3-54.2); Mean Corpuscular HGB Conc 29.8 GM/DL (32-36); Mean Corpuscular Volume 77.9 FL (87-102); Mean Platelet Volume 9.4 FL (9.6-12.0); Monocytes # 1.9 10*3/uL (0.11-0.8); NRBC # 0.12 10*3/uL; Neutrophils % 79.8 % (38.7-73.9); Platelet Count 480 T/CUMM (130-400); Red Blood Count 4.66 MC/CUMM (3.8-5.5); Red Cell Distribution Width 23.1 % (9.3-17.3); White Blood Count 27.3 T/CUMM (4-12)
[2022-06-29 04:17] LABS: Arterial Base Excess iSTAT -6 MMOL/L (-2.5-2.5); Arterial Bicarbonate iSTAT 20.9 MMOL/L (20-26); Arterial O2 Saturation iSTAT 78 % (95-100); Arterial PCO2 iSTAT 44 MM HG (35-48); Arterial PO2 iSTAT 48 MM HG (80-95); Arterial Total CO2 iSTAT 22 MMO/L (23-27); Arterial pH iSTAT 7.281 (7.35-7.45)
[2022-06-29 04:31] LABS: Albumin 2.1 G/DL (3.4-5.0); Bilirubin,Total 0.9 MG/DL (0.20-1.00); Calcium 8.9 MG/DL (8.5-10.1); Osmolality,Calculated 281.1 MOS/KG (273-304); Potassium 4.2 MMOL/L (3.5-5.1); Total Protein 7.5 G/DL (6.4-8.2)
[2022-06-29 04:49] LABS: Lymphocytes 18 % (20-55); Nucleated Red Blood Cells 2 /100 WBC (0-5); Platelet Estimate Adequate; Total Cells Counted 100
[2022-06-29 04:50] LABS: Hypochromia Slight; Microcytosis Slight
[2022-06-29] MEDS: PIPERACILLIN/TAZOBACTAM 3,375 MG in SODIUM CHLORIDE 0.9% 100 ML IV SCH ×3 (05:15→20:40)
[2022-06-29] MEDS: ALBUTEROL 0.4 MG/ML 30 ML/BOTTLE PO SCH ×3 (05:15→22:10)
[2022-06-29] MEDS: LACTATED RINGERS 1,000 ML IV SCH ×3 (05:16→20:40)
[2022-06-29 05:24] LABS: Bacteria,Urine Occasional /HPF (Few); Bilirubin,Urine Small mg/dL (Negative); Blood, Urine Moderate mg/dL (Negative); Glucose,Urine (UA) 250 mg/dL (Negative); Ketones,Urine Trace mg/dL (Negative); Mucus,Urine Occasional /LPF (Occasional); Nitrite,Urine Negative (Negative); Protein,Urine 100 mg/dL (Negative); RBC,Urine 642 /HPF (0-4); Squamous Epithelial Cell,Urine Moderate /HPF (0-10); Urine Appearance Clear (Clear); Urine Color Yellow (Yellow); Urine Specific Gravity >= 1.030 (1.001-1.035); Urine Urobilinogen 0.2 eU/dL (<2.0); Urine pH 5.5 (4.5-8.0)
[2022-06-29 05:45] LABS: ABG Base Excess -3.7 MMOL/L (-2.5-2.5); ABG HCO3 21.3 MMOL/L (20-26); ABG Oxygen Saturation 96.4 % (95-100); ABG PCO2 52.7 MM HG (35-48); ABG PH 7.264 (7.35-7.45); ABG PO2 97.8 MM HG (80-95); ABG TCO2 21.9 MMOL/L (23-27)
[2022-06-29] MEDS ORDERED: ACETAMINOPHEN 650 MG SUPP RECTAL PRN (05:55)
[2022-06-29 06:42] LABS: ABG Base Excess -3.6 MMOL/L (-2.5-2.5); ABG HCO3 21.4 MMOL/L (20-26); ABG PCO2 52.6 MM HG (35-48); ABG PH 7.266 (7.35-7.45); ABG TCO2 21.9 MMOL/L (23-27)
[2022-06-29 08:05] LABS: ABG Base Excess -3.7 MMOL/L (-2.5-2.5); ABG HCO3 21.3 MMOL/L (20-26); ABG Oxygen Saturation 94.6 % (95-100); ABG PH 7.252 (7.35-7.45); ABG PO2 86.3 MM HG (80-95); ABG TCO2 22.3 MMOL/L (23-27)
[2022-06-29] MEDS: LOSARTAN 50 MG TABLET PO SCH ×2 (08:36→08:39)
[2022-06-29] MEDS: PANTOPRAZOLE 40 MG TABLET PO SCH (08:36)
[2022-06-29] MEDS: acetaZOLAMIDE 250 MG TABLET PO SCH (08:36)
[2022-06-29] MEDS: POTASSIUM CHLORIDE 10 MEQ TABLET PO SCH ×2 (08:36→17:11)
[2022-06-29] MEDS: MONTELUKAST 10 MG TABLET PO SCH (08:36)
[2022-06-29] MEDS: APIXABAN 5 MG TABLET PO SCH ×2 (08:36→20:39)
[2022-06-29] MEDS: INSULIN LISPRO 100 UNIT/ML SUBCUT SCH ×4 (08:37→20:39)
[2022-06-29] MEDS: amLODIPine 10 MG TABLET PO SCH (08:39)
[2022-06-29] MEDS: carvediloL 6.25 MG TABLET PO SCH (08:39)
[2022-06-29 12:13] LABS: Barbiturates Screen,Urine Negative (Negative); Benzodiazepines Screen,Urine Positive (Negative); Cannabinoid Screen,Urine Negative (Negative); Opiate Screen,Urine Positive (Negative); Phencyclidine Screen,Urine Negative (Negative)
[2022-06-29 12:37] LABS: Ferritin 112.2 ng/mL (8-252)
[2022-06-29] MEDS: DEXAMETHASONE 4 MG/1 ML VIAL IV SCH (13:09)
[2022-06-29] MEDS ORDERED: NOREPINEPHRINE 16 MG in SODIUM CHLORIDE 0.9% 234 ML IV PRN (17:00)
[2022-06-29] MEDS: ASCORBIC ACID 500 MG TABLET PO SCH (20:40)
[2022-06-29] MEDS: FAMOTIDINE 20 MG TABLET PO SCH (20:40)
[2022-06-30 04:49] LABS: Basophils % 0.1 % (0.0-0.8); Eosinophils % 0.1 % (0.00-10.9); Hematocrit 32.1 VOL% (35.7-47.0); Hemoglobin 9.4 GM/DL (12.0-16.0); Immature Granulocytes % 0.6 %; Lymphocytes # 1.5 10*3/uL (1.4-4.0); Lymphocytes % 9.2 % (21.3-54.2); Mean Corpuscular HGB Conc 29.3 GM/DL (32-36); Mean Corpuscular Volume 78.1 FL (87-102); Mean Platelet Volume 9.3 FL (9.6-12.0); Monocytes # 1.5 10*3/uL (0.11-0.8); Monocytes % 9.3 % (1.7-12.7); NRBC # 0.02 10*3/uL; Neutrophils % 80.7 % (38.7-73.9); Platelet Count 404 T/CUMM (130-400); Red Blood Count 4.11 MC/CUMM (3.8-5.5); Red Cell Distribution Width 23.2 % (9.3-17.3); White Blood Count 16.3 T/CUMM (4-12)
[2022-06-30] MEDS: PIPERACILLIN/TAZOBACTAM 3,375 MG in SODIUM CHLORIDE 0.9% 100 ML IV SCH ×3 (05:00→21:12)
[2022-06-30] MEDS: LACTATED RINGERS 1,000 ML IV SCH (05:00)
[2022-06-30] MEDS: ALBUTEROL 0.4 MG/ML 30 ML/BOTTLE PO SCH ×3 (05:01→21:12)
[2022-06-30 05:15] LABS: Albumin 1.9 G/DL (3.4-5.0); Bilirubin,Total 0.4 MG/DL (0.20-1.00); Calcium 9.4 MG/DL (8.5-10.1); Osmolality,Calculated 284.3 MOS/KG (273-304); Potassium 4.1 MMOL/L (3.5-5.1); Total Protein 7.4 G/DL (6.4-8.2)
[2022-06-30 05:43] LABS: Cholesterol 79 MG/DL (50-200); HDL Cholesterol < 10 MG/DL (40-60); Triglycerides 132 MG/DL (2-150); VLDL Cholesterol 26.4 MG/DL
[2022-06-30 07:59] LABS: Platelet Estimate Increased
[2022-06-30 08:16] LABS: Arterial Base Excess iSTAT -1 MMOL/L (-2.5-2.5); Arterial Bicarbonate iSTAT 25.4 MMOL/L (20-26); Arterial O2 Saturation iSTAT 100 % (95-100); Arterial PCO2 iSTAT 46 MM HG (35-48); Arterial PO2 iSTAT 181 MM HG (80-95); Arterial Total CO2 iSTAT 27 MMO/L (23-27); Arterial pH iSTAT 7.347 (7.35-7.45)
[2022-06-30] MEDS: INSULIN LISPRO 100 UNIT/ML SUBCUT SCH ×4 (08:27→21:12)
[2022-06-30] MEDS: ZINC GLUCONATE 50 MG TABLET PO SCH (09:18)
[2022-06-30] MEDS: CHOLECALCIFEROL 1,000 UNIT TABLET PO SCH (09:19)
[2022-06-30] MEDS: ASCORBIC ACID 500 MG TABLET PO SCH ×2 (09:19→21:12)
[2022-06-30] MEDS: ROSUVASTATIN 20 MG TABLET PO SCH (09:19)
[2022-06-30] MEDS: POTASSIUM CHLORIDE 10 MEQ TABLET PO SCH ×2 (09:19→17:02)
[2022-06-30] MEDS: AZITHROMYCIN 250 MG TABLET PO SCH (09:20)
[2022-06-30] MEDS: FAMOTIDINE 20 MG TABLET PO SCH ×2 (09:20→21:12)
[2022-06-30] MEDS: MONTELUKAST 10 MG TABLET PO SCH (09:20)
[2022-06-30] MEDS: APIXABAN 5 MG TABLET PO SCH ×2 (09:20→21:12)
[2022-06-30] MEDS: DEXAMETHASONE 4 MG/1 ML VIAL IV SCH (09:21)
[2022-06-30] MEDS: carvediloL 3.125 MG TABLET PO SCH (17:10)
[2022-07-01 04:13] LABS: Basophils % 0.2 % (0.0-0.8); Eosinophils # 0.2 10*3/uL (0.0-0.87); Eosinophils % 1.2 % (0.00-10.9); Hematocrit 30.5 VOL% (35.7-47.0); Hemoglobin 9.1 GM/DL (12.0-16.0); Immature Granulocytes % 0.6 %; Immature Granulocytes Absolute 0.09 #; Lymphocytes # 2.5 10*3/uL (1.4-4.0); Lymphocytes % 16.4 % (21.3-54.2); Mean Corpuscular HGB Conc 29.8 GM/DL (32-36); Mean Corpuscular Volume 77.6 FL (87-102); Mean Platelet Volume 9.3 FL (9.6-12.0); Monocytes # 1.4 10*3/uL (0.11-0.8); Monocytes % 9.3 % (1.7-12.7); NRBC # 0.06 10*3/uL; Neutrophils % 72.3 % (38.7-73.9); Platelet Count 444 T/CUMM (130-400); Red Blood Count 3.93 MC/CUMM (3.8-5.5); Red Cell Distribution Width 23.3 % (9.3-17.3)
[2022-07-01 04:45] LABS: % Iron Saturation 10.2 % (18-50); Ferritin 94.4 ng/mL (8-252)
[2022-07-01 04:51] LABS: Calcium 9.3 MG/DL (8.5-10.1); Osmolality,Calculated 290.7 MOS/KG (273-304)
[2022-07-01] MEDS: PIPERACILLIN/TAZOBACTAM 3,375 MG in SODIUM CHLORIDE 0.9% 100 ML IV SCH ×3 (05:33→21:35)
[2022-07-01] MEDS: ALBUTEROL 0.4 MG/ML 30 ML/BOTTLE PO SCH ×3 (05:33→23:00)
[2022-07-01 05:39] LABS: Platelet Estimate Increased
[2022-07-01] MEDS: INSULIN LISPRO 100 UNIT/ML SUBCUT SCH ×4 (07:38→21:35)
[2022-07-01] MEDS: ASCORBIC ACID 500 MG TABLET PO SCH ×2 (08:31→21:34)
[2022-07-01] MEDS: AZITHROMYCIN 250 MG TABLET PO SCH (08:31)
[2022-07-01] MEDS: carvediloL 3.125 MG TABLET PO SCH ×2 (08:31→16:59)
[2022-07-01] MEDS: POTASSIUM CHLORIDE 10 MEQ TABLET PO SCH ×2 (08:31→16:59)
[2022-07-01] MEDS: MONTELUKAST 10 MG TABLET PO SCH (08:31)
[2022-07-01] MEDS: APIXABAN 5 MG TABLET PO SCH ×2 (08:32→21:34)
[2022-07-01] MEDS: FAMOTIDINE 20 MG TABLET PO SCH ×2 (08:32→21:34)
[2022-07-01] MEDS: CHOLECALCIFEROL 1,000 UNIT TABLET PO SCH (08:32)
[2022-07-01] MEDS: ZINC GLUCONATE 50 MG TABLET PO SCH (08:33)
[2022-07-01] MEDS: ROSUVASTATIN 20 MG TABLET PO SCH (08:33)
[2022-07-01] MEDS: DEXAMETHASONE 4 MG/1 ML VIAL IV SCH (08:33)
[2022-07-01] MEDS ORDERED: traMADol 50 MG TABLET PO PRN (12:44)
[2022-07-02] MEDS: PIPERACILLIN/TAZOBACTAM 3,375 MG in SODIUM CHLORIDE 0.9% 100 ML IV SCH ×3 (06:03→21:29)
[2022-07-02] MEDS: ALBUTEROL 0.4 MG/ML 30 ML/BOTTLE PO SCH ×3 (06:04→21:29)
[2022-07-02] MEDS: HYDROmorphone 1 MG/1 ML SYRINGE IV PRN (06:14)
[2022-07-02 06:42] LABS: Basophils # 0.1 10*3/uL (0.0-0.2); Basophils % 0.4 % (0.0-0.8); Eosinophils # 0.3 10*3/uL (0.0-0.87); Eosinophils % 1.6 % (0.00-10.9); Hematocrit 30.2 VOL% (35.7-47.0); Hemoglobin 9.2 GM/DL (12.0-16.0); Immature Granulocytes % 1.5 %; Immature Granulocytes Absolute 0.26 #; Lymphocytes # 3.8 10*3/uL (1.4-4.0); Lymphocytes % 22.2 % (21.3-54.2); Mean Corpuscular HGB Conc 30.5 GM/DL (32-36); Mean Corpuscular Volume 75.9 FL (87-102); Mean Platelet Volume 9.7 FL (9.6-12.0); Monocytes # 1.3 10*3/uL (0.11-0.8); Monocytes % 7.6 % (1.7-12.7); NRBC # 0.17 10*3/uL; Neutrophils % 66.7 % (38.7-73.9); Platelet Count 487 T/CUMM (130-400); Red Blood Count 3.98 MC/CUMM (3.8-5.5); Red Cell Distribution Width 23.6 % (9.3-17.3)
[2022-07-02 06:53] LABS: Calcium 9.4 MG/DL (8.5-10.1); Osmolality,Calculated 289.7 MOS/KG (273-304); Potassium 3.7 MMOL/L (3.5-5.1)
[2022-07-02] MEDS: INSULIN LISPRO 100 UNIT/ML SUBCUT SCH ×4 (08:07→21:28)
[2022-07-02] MEDS: DEXAMETHASONE 4 MG/1 ML VIAL IV SCH (09:21)
[2022-07-02] MEDS: AZITHROMYCIN 250 MG TABLET PO SCH (09:22)
[2022-07-02] MEDS: POTASSIUM CHLORIDE 10 MEQ TABLET PO SCH ×2 (09:22→17:05)
[2022-07-02] MEDS: APIXABAN 5 MG TABLET PO SCH ×2 (09:22→21:27)
[2022-07-02] MEDS: ROSUVASTATIN 20 MG TABLET PO SCH (09:22)
[2022-07-02] MEDS: carvediloL 3.125 MG TABLET PO SCH ×2 (09:22→17:05)
[2022-07-02] MEDS: ZINC GLUCONATE 50 MG TABLET PO SCH (09:22)
[2022-07-02] MEDS: FAMOTIDINE 20 MG TABLET PO SCH ×2 (09:22→21:27)
[2022-07-02] MEDS: ASCORBIC ACID 500 MG TABLET PO SCH ×2 (09:22→21:26)
[2022-07-02] MEDS: CHOLECALCIFEROL 1,000 UNIT TABLET PO SCH (09:22)
[2022-07-02] MEDS: MONTELUKAST 10 MG TABLET PO SCH (09:22)
[2022-07-02] MEDS ORDERED: REMDESIVIR 200 MG in SODIUM CHLORIDE 0.9% 210 ML IV ONE (10:00)
[2022-07-03] MEDS: ALBUTEROL 0.4 MG/ML 30 ML/BOTTLE PO SCH ×3 (05:02→21:59)
[2022-07-03] MEDS: PIPERACILLIN/TAZOBACTAM 3,375 MG in SODIUM CHLORIDE 0.9% 100 ML IV SCH ×3 (05:04→21:58)
[2022-07-03 06:14] LABS: Alanine Aminotransferase 24 U/L (13-56); Albumin 2.1 G/DL (3.4-5.0); Alkaline Phosphatase 114 U/L (45-117); Aspartate Amino Transferase 13 U/L (0-37); Bilirubin,Total < 0.39 MG/DL (0.20-1.00); Blood Urea Nitrogen 13 MG/DL (7-18); Calcium 9.4 MG/DL (8.5-10.1); Carbon Dioxide 29 MMOL/L (21-32); Chloride 114 MMOL/L (98-107); Glucose 136 MG/DL (74-106); Osmolality,Calculated 289.7 MOS/KG (273-304); Potassium 3.8 MMOL/L (3.5-5.1); Sodium 145 MMOL/L (136-145)
[2022-07-03] MEDS: AZITHROMYCIN 250 MG TABLET PO SCH (09:41)
[2022-07-03] MEDS: ZINC GLUCONATE 50 MG TABLET PO SCH (09:41)
[2022-07-03] MEDS: POTASSIUM CHLORIDE 10 MEQ TABLET PO SCH ×2 (09:41→16:49)
[2022-07-03] MEDS: FAMOTIDINE 20 MG TABLET PO SCH ×2 (09:42→21:59)
[2022-07-03] MEDS: carvediloL 3.125 MG TABLET PO SCH ×2 (09:42→16:49)
[2022-07-03] MEDS: ASCORBIC ACID 500 MG TABLET PO SCH ×2 (09:42→21:59)
[2022-07-03] MEDS: ROSUVASTATIN 20 MG TABLET PO SCH (09:42)
[2022-07-03] MEDS: CHOLECALCIFEROL 1,000 UNIT TABLET PO SCH (09:42)
[2022-07-03] MEDS: APIXABAN 5 MG TABLET PO SCH ×2 (09:42→21:59)
[2022-07-03] MEDS: DEXAMETHASONE 4 MG/1 ML VIAL IV SCH (09:45)
[2022-07-03] MEDS: INSULIN LISPRO 100 UNIT/ML SUBCUT SCH ×4 (09:46→21:52)
[2022-07-03] MEDS: MONTELUKAST 10 MG TABLET PO SCH (09:47)
[2022-07-03] MEDS: REMDESIVIR 100 MG in SODIUM CHLORIDE 0.9% 100 ML IV SCH (09:47)
[2022-07-04] MEDS: ALBUTEROL 0.4 MG/ML 30 ML/BOTTLE PO SCH ×3 (05:37→21:03)
[2022-07-04 05:54] LABS: Basophils # 0.1 10*3/uL (0.0-0.2); Basophils % 0.3 % (0.0-0.8); Eosinophils # 0.2 10*3/uL (0.0-0.87); Eosinophils % 1.1 % (0.00-10.9); Hematocrit 30.6 VOL% (35.7-47.0); Hemoglobin 9.2 GM/DL (12.0-16.0); Immature Granulocytes % 1.6 %; Immature Granulocytes Absolute 0.32 #; Lymphocytes # 4.6 10*3/uL (1.4-4.0); Lymphocytes % 22.5 % (21.3-54.2); Mean Corpuscular HGB Conc 30.1 GM/DL (32-36); Mean Corpuscular Volume 77.5 FL (87-102); Mean Platelet Volume 9.4 FL (9.6-12.0); Monocytes # 1.5 10*3/uL (0.11-0.8); Monocytes % 7.3 % (1.7-12.7); NRBC # 0.23 10*3/uL; Neutrophils % 67.2 % (38.7-73.9); Platelet Count 524 T/CUMM (130-400); Red Blood Count 3.95 MC/CUMM (3.8-5.5); Red Cell Distribution Width 23.6 % (9.3-17.3); White Blood Count 20.6 T/CUMM (4-12)
[2022-07-04 06:16] LABS: Eosinophils 2 % (0-10); Hypochromia 1+; Lymphocytes 22 % (20-55); Microcytosis 1+; Nucleated Red Blood Cells 2 /100 WBC (0-5); Target Cells 1+; Total Cells Counted 100
[2022-07-04 06:17] LABS: Polychromasia Slight
[2022-07-04 06:27] LABS: Alanine Aminotransferase 23 U/L (13-56); Albumin 2.2 G/DL (3.4-5.0); Alkaline Phosphatase 107 U/L (45-117); Aspartate Amino Transferase 12 U/L (0-37); Bilirubin,Total < 0.39 MG/DL (0.20-1.00); Blood Urea Nitrogen 13 MG/DL (7-18); Calcium 9.3 MG/DL (8.5-10.1); Carbon Dioxide 27 MMOL/L (21-32); Chloride 112 MMOL/L (98-107); Glucose 104 MG/DL (74-106); Osmolality,Calculated 287.7 MOS/KG (273-304); Potassium 3.8 MMOL/L (3.5-5.1); Sodium 145 MMOL/L (136-145); Total Protein 6.9 G/DL (6.4-8.2)
[2022-07-04] MEDS: INSULIN LISPRO 100 UNIT/ML SUBCUT SCH ×4 (07:59→20:50)
[2022-07-04] MEDS: REMDESIVIR 100 MG in SODIUM CHLORIDE 0.9% 100 ML IV SCH (10:00)
[2022-07-04] MEDS: DEXAMETHASONE 4 MG/1 ML VIAL IV SCH (11:00)
[2022-07-04] MEDS: MONTELUKAST 10 MG TABLET PO SCH (11:07)
[2022-07-04] MEDS: FAMOTIDINE 20 MG TABLET PO SCH ×2 (11:07→21:02)
[2022-07-04] MEDS: carvediloL 3.125 MG TABLET PO SCH ×2 (11:07→16:24)
[2022-07-04] MEDS: CHOLECALCIFEROL 1,000 UNIT TABLET PO SCH (11:07)
[2022-07-04] MEDS: ZINC GLUCONATE 50 MG TABLET PO SCH (11:07)
[2022-07-04] MEDS: APIXABAN 5 MG TABLET PO SCH ×2 (11:07→21:02)
[2022-07-04] MEDS: POTASSIUM CHLORIDE 10 MEQ TABLET PO SCH ×2 (11:07→16:24)
[2022-07-04] MEDS: ASCORBIC ACID 500 MG TABLET PO SCH ×2 (11:07→21:02)
[2022-07-04] MEDS: ROSUVASTATIN 20 MG TABLET PO SCH (11:07)
[2022-07-04 22:41] LABS: Bilirubin,Urine Negative (Negative); Blood, Urine Negative (Negative); Glucose,Urine (UA) Negative (Negative); Ketones,Urine Negative (Negative); Nitrite,Urine Negative (Negative); Protein,Urine Negative (Negative); Urine Appearance Clear (Clear); Urine Color Yellow (Yellow); Urine Urobilinogen 0.2 eU/dL (<2.0)
[2022-07-04 22:45] LABS: Mucus,Urine Occasional /LPF (Occasional); RBC,Urine 2 /HPF (0-4); Squamous Epithelial Cell,Urine Occasional /HPF (0-10)
[2022-07-05] MEDS: ALBUTEROL 0.4 MG/ML 30 ML/BOTTLE PO SCH (05:57)
[2022-07-05 06:14] LABS: Basophils % 0.1 % (0.0-0.8); Eosinophils # 0.2 10*3/uL (0.0-0.87); Hematocrit 31.6 VOL% (35.7-47.0); Hemoglobin 9.7 GM/DL (12.0-16.0); Immature Granulocytes % 1.3 %; Immature Granulocytes Absolute 0.27 #; Lymphocytes # 3.6 10*3/uL (1.4-4.0); Mean Corpuscular HGB Conc 30.7 GM/DL (32-36); Mean Corpuscular Volume 76.3 FL (87-102); Mean Platelet Volume 9.4 FL (9.6-12.0); Monocytes # 1.2 10*3/uL (0.11-0.8); Monocytes % 5.9 % (1.7-12.7); NRBC # 0.11 10*3/uL; Neutrophils % 73.7 % (38.7-73.9); Platelet Count 557 T/CUMM (130-400); Red Blood Count 4.14 MC/CUMM (3.8-5.5); Red Cell Distribution Width 23.9 % (9.3-17.3); White Blood Count 20.3 T/CUMM (4-12)
[2022-07-05 06:36] LABS: Alanine Aminotransferase 21 U/L (13-56); Albumin 2.2 G/DL (3.4-5.0); Alkaline Phosphatase 124 U/L (45-117); Aspartate Amino Transferase 10 U/L (0-37); Bilirubin,Total < 0.39 MG/DL (0.20-1.00); Blood Urea Nitrogen 12 MG/DL (7-18); Calcium 8.7 MG/DL (8.5-10.1); Carbon Dioxide 31 MMOL/L (21-32); Chloride 113 MMOL/L (98-107); Glucose 130 MG/DL (74-106); Osmolality,Calculated 291.6 MOS/KG (273-304); Potassium 3.9 MMOL/L (3.5-5.1); Sodium 146 MMOL/L (136-145); Total Protein 6.9 G/DL (6.4-8.2)
[2022-07-05 06:44] LABS: Band Neutrophils 1 % (0-10); Hypochromia 1+; Lymphocytes 25 % (20-55); Total Cells Counted 100
[2022-07-05 06:45] LABS: Microcytosis 2+; Polychromasia Slight; Target Cells 1+
[2022-07-05 06:46] LABS: Platelet Estimate Increased
[2022-07-05] MEDS: INSULIN LISPRO 100 UNIT/ML SUBCUT SCH ×2 (09:00→12:31)
[2022-07-05] MEDS: ASCORBIC ACID 500 MG TABLET PO SCH (10:08)
[2022-07-05] MEDS: CHOLECALCIFEROL 1,000 UNIT TABLET PO SCH (10:08)
[2022-07-05] MEDS: ROSUVASTATIN 20 MG TABLET PO SCH (10:09)
[2022-07-05] MEDS: POTASSIUM CHLORIDE 10 MEQ TABLET PO SCH (10:09)
[2022-07-05] MEDS: ZINC GLUCONATE 50 MG TABLET PO SCH (10:09)
[2022-07-05] MEDS: APIXABAN 5 MG TABLET PO SCH (10:09)
[2022-07-05] MEDS: MONTELUKAST 10 MG TABLET PO SCH (10:09)
[2022-07-05] MEDS: carvediloL 3.125 MG TABLET PO SCH (10:09)
[2022-07-05] MEDS: FAMOTIDINE 20 MG TABLET PO SCH (10:09)
[2022-07-05] MEDS: DEXAMETHASONE 4 MG/1 ML VIAL IV SCH (10:10)
[2022-07-05 11:59] VITALS: BP 126/54
== END 2022-07-05 13:40 | disposition home or self-care (01) | DRG 417 ==
LOC: N.ED 11:34 → N.EDINP 15:58 → INTOOBSV 15:58 → N.3E 18:18 → N.CC 06-29 03:40 → N.3E 07-01 12:13
PROVIDERS: ADMIT Surgery; ATTEND Family Medicine